=== PATIENT | female | born 1940 | race Caucasian/White ===

== ENCOUNTER 2017-11-24 13:37 | Day surgery (SDC) | payer OTHER ==
[~2017-11-24 13:37] MED LIST: ASPI81EC PO; CALCA500CH PO; CHOL10002 PO; CYAN1000 PO; IBUP800 PO; IRON325 MG; MOMENI; MULVITMINF PO; Multiple Vitam1 EAC1; POTASSIUM99 M1; Prinivil10 MG PO; RALO60 PO; TRAZ50 PO; TRIA50 PO
[2017-11-24 14:14] LABS: BASOPHILS ABSOLUTE AUTO 0.02 K/mm3 (0.00-0.23); BASOPHILS PERCENT AUTO 0 % (0-2); EOSINOPHILS ABSOLUTE AUTO 0.17 K/mm3 (0.00-0.68); EOSINOPHILS PERCENT AUTO 3 % (0-6); Hemoglobin 12.4 g/dL (11.5-16.0); IMMATURE GRAN ABSOLUTE AUTO 0.01 K/mm3 (0.00-0.10); IMMATURE GRAN PERCENT AUTO 0 % (0-1); LYMPHOCYTES ABSOLUTE AUTO 0.95 K/mm3 (0.84-5.20); LYMPHOCYTES PERCENT AUTO 15 % (21-46); MONOCYTES PERCENT AUTO 10 % (4-13); Mean Corpuscular HGB 29.7 pg (26.0-34.0); Mean Corpuscular HGB Conc 32.6 g/dL (31.5-36.5); Mean Corpuscular Volume 91 fL (80-100); NEUTROPHILS ABSOLUTE AUTO 4.54 K/mm3 (1.96-9.15); NEUTROPHILS PERCENT AUTO 72 % (41-73); Platelet Count 260 K/mm3 (150-400); RDW Coefficient Variation 14.7 % (11.7-14.2); RDW Standard Deviation 49.3 fL (35.1-46.3); Red Blood Cell Count 4.17 M/mm3 (3.80-5.20); White Blood Cell Count 6.29 K/mm3 (4.00-11.30)
[2017-11-24 14:48] LABS: Free Thyroxine 0.88 ng/dL (0.70-1.60); Very Low Density Lipoprot Chol 16 mg/dL (6-32)
[2017-11-24 15:43] LABS: CHOL/HDL RATIO 2.6; Cholesterol 167 mg/dL (50-200); HDL Cholesterol 64 mg/dL (>39); LDL/HDL RATIO 1.4; Low Density Lipoprotein Chol 87 mg/dL (0-110); Triglycerides 82 mg/dL (30-160)
[2017-11-24 15:47] LABS: Alanine Aminotransfer (ALT/SGP 18 U/L (12-78); Albumin, Blood 3.6 g/dL (3.4-5.0); Albumin/Globulin Ratio 0.9 (0.8-1.8); Alk Phos 66 U/L (50-136); Anion Gap 9 mmol/L (6-16); Aspartate Aminotrans (AST/SGOT 18 U/L (12-37); Bilirubin, Total 0.8 mg/dL (0.1-1.0); Blood Urea Nitrogen 16 mg/dL (8-24); Bun/Creatinine Ratio 27.7 (12.0-20.0); CO2, Blood 25 mmol/L (21-32); Calcium, Blood 8.7 mg/dL (8.5-10.1); Chloride, Blood 104 mmol/L (98-108); Creatinine, Blood 0.58 mg/dL (0.40-1.00); Globulin, Blood 3.9 g/dL (2.2-4.0); Glomerular Filtration Rate >60 (60-); Glucose, Blood 81 mg/dL (70-99); Potassium, Blood 3.9 mmol/L (3.5-5.5); Sodium, Blood 138 mmol/L (136-145); Total Protein, Blood 7.5 g/dL (6.4-8.2)
[2018-01-12] MEDS ORDERED: METO25ER PO ×2 (11:07→11:26)
[2018-07-15] MEDS ORDERED: VIT D3 PO (15:04)
[2018-07-15] MEDS ORDERED: VIT PO (15:05)
[2018-07-15] MEDS ORDERED: SLOW RELEASE IRON PO (15:06)
== END 2017-11-24 14:00 | disposition home or self-care (01) ==
LOC: ATC 13:37
PROVIDERS: Family Medicine; Internal Medicine Medical Oncology
DX: I48.92 Unspecified atrial flutter (principal); R05 Cough; R52 Pain, unspecified; I10 Essential (primary) hypertension
CPT/HCPCS: 36591; 80053; 80061; 83880; 84439; 84443; 85025; J1642

== ENCOUNTER 2017-11-28 10:35 | Observation (INO) | payer OTHER ==
[~2017-11-28] VITALS: Ht 160 cm; Wt 76.7 kg
[2017-11-28 12:08] LABS: BASOPHILS ABSOLUTE AUTO 0.04 K/mm3 (0.00-0.23); BASOPHILS PERCENT AUTO 0 % (0-2); EOSINOPHILS ABSOLUTE AUTO 0.07 K/mm3 (0.00-0.68); EOSINOPHILS PERCENT AUTO 1 % (0-6); Hematocrit 41.5 % (33.0-51.0); Hemoglobin 13.2 g/dL (11.5-16.0); IMMATURE GRAN ABSOLUTE AUTO 0.04 K/mm3 (0.00-0.10); IMMATURE GRAN PERCENT AUTO 0 % (0-1); LYMPHOCYTES PERCENT AUTO 6 % (21-46); MONOCYTES ABSOLUTE AUTO 0.84 K/mm3 (0.16-1.47); MONOCYTES PERCENT AUTO 8 % (4-13); Mean Corpuscular HGB 29.7 pg (26.0-34.0); Mean Corpuscular HGB Conc 31.8 g/dL (31.5-36.5); Mean Corpuscular Volume 94 fL (80-100); Mean Platelet Volume 9.8 fL (9.1-12.4); NEUTROPHILS ABSOLUTE AUTO 9.25 K/mm3 (1.96-9.15); NEUTROPHILS PERCENT AUTO 85 % (41-73); Platelet Count 259 K/mm3 (150-400); RDW Coefficient Variation 14.6 % (11.7-14.2); RDW Standard Deviation 50.5 fL (35.1-46.3); Red Blood Cell Count 4.44 M/mm3 (3.80-5.20); White Blood Cell Count 10.84 K/mm3 (4.00-11.30)
[2017-11-28 12:20] LABS: Calcium, Ionized (POC) 1.03 mmol/L (1.10-1.46); Chloride (POC) 103 mmol/L (98-108); Creatinine (POC) 0.6 mg/dL (0.6-1.0); Glucose (ISTAT POC) 102 mg/dL (70-99); Hemoglobin (POC) 14.6 g/dL (12.0-16.0); Potassium (POC) 3.5 mmol/L (3.5-5.5); Sodium (POC) 138 mmol/L (135-148); Total CO2 (POC) 24 mmol/L (21-32)
[2017-11-28 12:36] LABS: Alanine Aminotransfer (ALT/SGP 19 U/L (12-78); Albumin, Blood 3.7 g/dL (3.4-5.0); Albumin/Globulin Ratio 0.9 (0.8-1.8); Alk Phos 66 U/L (50-136); Anion Gap 9 mmol/L (6-16); Aspartate Aminotrans (AST/SGOT 21 U/L (12-37); Bilirubin, Total 0.5 mg/dL (0.1-1.0); Blood Urea Nitrogen 21 mg/dL (8-24); Bun/Creatinine Ratio 35.7 (12.0-20.0); CO2, Blood 24 mmol/L (21-32); Calcium, Blood 8.7 mg/dL (8.5-10.1); Chloride, Blood 104 mmol/L (98-108); Creatinine, Blood 0.59 mg/dL (0.40-1.00); Glomerular Filtration Rate >60 (60-); Glucose, Blood 100 mg/dL (70-99); Potassium, Blood 3.6 mmol/L (3.5-5.5); Sodium, Blood 137 mmol/L (136-145); Total Protein, Blood 7.7 g/dL (6.4-8.2); Troponin I <0.015 ng/mL (0.000-0.040)
[2017-11-28] MEDS ORDERED: Lasix20 MG PO (13:52)
[2017-11-28] MEDS ORDERED: DILT180 PO (13:53)
[2017-11-28] MEDS ORDERED: XARELTO20 MG PO (13:53)
[2017-11-28 16:39] LABS: Hematocrit 38.2 % (33.0-51.0); Hemoglobin 12.4 g/dL (11.5-16.0)
[2017-11-29 04:17] LABS: BASOPHILS ABSOLUTE AUTO 0.03 K/mm3 (0.00-0.23); BASOPHILS PERCENT AUTO 1 % (0-2); EOSINOPHILS ABSOLUTE AUTO 0.21 K/mm3 (0.00-0.68); EOSINOPHILS PERCENT AUTO 4 % (0-6); Hematocrit 36.5 % (33.0-51.0); Hemoglobin 11.8 g/dL (11.5-16.0); IMMATURE GRAN ABSOLUTE AUTO 0.02 K/mm3 (0.00-0.10); IMMATURE GRAN PERCENT AUTO 0 % (0-1); LYMPHOCYTES ABSOLUTE AUTO 0.87 K/mm3 (0.84-5.20); LYMPHOCYTES PERCENT AUTO 15 % (21-46); MONOCYTES ABSOLUTE AUTO 0.54 K/mm3 (0.16-1.47); MONOCYTES PERCENT AUTO 9 % (4-13); Mean Corpuscular HGB 29.9 pg (26.0-34.0); Mean Corpuscular HGB Conc 32.3 g/dL (31.5-36.5); Mean Corpuscular Volume 92 fL (80-100); Mean Platelet Volume 9.8 fL (9.1-12.4); NEUTROPHILS PERCENT AUTO 72 % (41-73); Platelet Count 249 K/mm3 (150-400); RDW Coefficient Variation 14.7 % (11.7-14.2); RDW Standard Deviation 50.2 fL (35.1-46.3); Red Blood Cell Count 3.95 M/mm3 (3.80-5.20); White Blood Cell Count 5.87 K/mm3 (4.00-11.30)
[2017-11-29 04:34] LABS: Anion Gap 8 mmol/L (6-16); Blood Urea Nitrogen 13 mg/dL (8-24); CO2, Blood 26 mmol/L (21-32); Chloride, Blood 107 mmol/L (98-108); Creatinine, Blood 0.59 mg/dL (0.40-1.00); Glomerular Filtration Rate >60 (60-); Glucose, Blood 86 mg/dL (70-99); Potassium, Blood 3.6 mmol/L (3.5-5.5); Sodium, Blood 141 mmol/L (136-145)
[2017-11-29] MEDS ORDERED: Cardizem CD 24240 MG PO (08:24)
[2017-11-29] MEDS ORDERED: CELE200 PO (08:25)
[2018-01-12] MEDS ORDERED: METO25ER PO ×2 (11:07→11:26)
[2018-07-15] MEDS ORDERED: VIT D3 PO (15:04)
[2018-07-15] MEDS ORDERED: VIT PO (15:05)
[2018-07-15] MEDS ORDERED: SLOW RELEASE IRON PO (15:06)
== END 2017-11-29 09:12 | disposition home or self-care (01) ==
LOC: ER 10:35 → PCU 10:36
PROVIDERS: Internal Medicine; Physician Assistant
DX: R42 Dizziness and giddiness (principal); R55 Syncope and collapse; K92.1 Melena; R19.7 Diarrhea, unspecified; I48.91 Unspecified atrial fibrillation; I48.92 Unspecified atrial flutter; I10 Essential (primary) hypertension; R10.9 Unspecified abdominal pain; R11.0 Nausea; I08.1 Rheumatic disorders of both mitral and tricuspid valves; Z85.048 Personal history of other malignant neoplasm of rectum, rectosigmoid junction, and anus; Z92.3 Personal history of irradiation; Z88.5 Allergy status to narcotic agent; Z88.6 Allergy status to analgesic agent; Z88.0 Allergy status to penicillin; Z91.040 Latex allergy status; Z79.899 Other long term (current) drug therapy; Z85.3 Personal history of malignant neoplasm of breast; Z92.21 Personal history of antineoplastic chemotherapy; Z79.01 Long term (current) use of anticoagulants
CPT/HCPCS: 71046; 80047; 80048; 80053; 84484; 85014; 85018; 85025; 93005; 93010; 93306; 96360; 99285; G0378; J7030

== ENCOUNTER 2018-01-09 09:52 | Day surgery (SDC) | payer OTHER ==
[~2018-01-09 09:52] MED LIST changes: +CELE200 PO; +Cardizem CD 24240 MG PO; +DILT180 PO; +Lasix20 MG PO; +XARELTO20 MG PO
[2018-01-09 10:53] LABS: International Normalized Ratio 1.43
[2018-01-09] MEDS ORDERED: IBUP800 PO (13:41)
[2018-01-09] MEDS ORDERED: B-125000 MCG SL (13:42)
[2018-01-09] MEDS ORDERED: LOPE2C PO (13:43)
[2018-01-09] MEDS ORDERED: Micro-K8 MEQ PO (13:45)
[2018-01-09] MEDS ORDERED: DILTIAZEM 24HR180 M1 PO (13:46)
[2018-01-09] MEDS ORDERED: Hair, Skin & N1 EACH PO (13:46)
[2018-01-09] MEDS ORDERED: METO25ER PO (13:47)
[2018-01-09] MEDS ORDERED: NAPR220 PO (13:47)
[2018-01-09 16:08] LABS: BASOPHILS ABSOLUTE AUTO 0.04 K/mm3 (0.00-0.23); BASOPHILS PERCENT AUTO 1 % (0-2); EOSINOPHILS ABSOLUTE AUTO 0.22 K/mm3 (0.00-0.68); EOSINOPHILS PERCENT AUTO 4 % (0-6); Hematocrit 38.3 % (33.0-51.0); Hemoglobin 12.5 g/dL (11.5-16.0); IMMATURE GRAN ABSOLUTE AUTO 0.03 K/mm3 (0.00-0.10); IMMATURE GRAN PERCENT AUTO 1 % (0-1); LYMPHOCYTES ABSOLUTE AUTO 0.89 K/mm3 (0.84-5.20); LYMPHOCYTES PERCENT AUTO 15 % (21-46); MONOCYTES ABSOLUTE AUTO 0.66 K/mm3 (0.16-1.47); MONOCYTES PERCENT AUTO 11 % (4-13); Mean Corpuscular HGB Conc 32.6 g/dL (31.5-36.5); Mean Corpuscular Volume 92 fL (80-100); Mean Platelet Volume 10.3 fL (9.1-12.4); NEUTROPHILS ABSOLUTE AUTO 4.07 K/mm3 (1.96-9.15); NEUTROPHILS PERCENT AUTO 69 % (41-73); Platelet Count 289 K/mm3 (150-400); RDW Coefficient Variation 14.5 % (11.7-14.2); RDW Standard Deviation 49.2 fL (35.1-46.3); Red Blood Cell Count 4.16 M/mm3 (3.80-5.20); White Blood Cell Count 5.91 K/mm3 (4.00-11.30)
[2018-01-09 16:30] LABS: Alanine Aminotransfer (ALT/SGP 21 U/L (12-78); Albumin, Blood 3.7 g/dL (3.4-5.0); Alk Phos 69 U/L (50-136); Anion Gap 6 mmol/L (6-16); Aspartate Aminotrans (AST/SGOT 20 U/L (12-37); Bilirubin, Total 0.2 mg/dL (0.1-1.0); Blood Urea Nitrogen 19 mg/dL (8-24); Bun/Creatinine Ratio 26.6 (12.0-20.0); CO2, Blood 28 mmol/L (21-32); Calcium, Blood 8.3 mg/dL (8.5-10.1); Chloride, Blood 106 mmol/L (98-108); Creatinine, Blood 0.71 mg/dL (0.40-1.00); Globulin, Blood 3.7 g/dL (2.2-4.0); Glomerular Filtration Rate >60 (60-); Glucose, Blood 105 mg/dL (70-99); Potassium, Blood 3.9 mmol/L (3.5-5.5); Sodium, Blood 140 mmol/L (136-145); Total Protein, Blood 7.4 g/dL (6.4-8.2)
== END 2018-01-09 15:50 | disposition home or self-care (01) ==
LOC: ATC 09:52
PROVIDERS: Internal Medicine Clinical Cardiac Electrophysiology
DX: I48.91 Unspecified atrial fibrillation (principal); I48.92 Unspecified atrial flutter; I10 Essential (primary) hypertension
CPT/HCPCS: 36591; 80053; 85025; 85610; J1642

== ENCOUNTER 2018-01-12 09:53 | Day surgery (SDC) | payer OTHER ==
[~2018-01-12] VITALS: Ht 162.6 cm; Wt 75.0 kg
[~2018-01-12 09:53] MED LIST changes: +B-125000 MCG SL; +DILTIAZEM 24HR180 M1 PO; +Hair, Skin & N1 EACH PO; +LOPE2C PO; +METO25ER PO; +Micro-K8 MEQ PO; +NAPR220 PO
[2018-01-12] MEDS ORDERED: METO25ER PO (11:07)
[2018-01-12] MEDS ORDERED: METO50ER PO (11:26)
== END 2018-01-12 23:09 | disposition home or self-care (01) ==
LOC: MHTC 09:53
PROC: 5A2204Z Restoration of Cardiac Rhythm, Single (ICD-10-PCS; principal; 2018-01-12)
DX: I48.1 Persistent atrial fibrillation (principal); I48.92 Unspecified atrial flutter; I10 Essential (primary) hypertension
CPT/HCPCS: 92960; 93005; 93010; 99152; J1642; J2250; J7120

== ENCOUNTER → 2018-02-22 | Outpatient (CLI) | payer OTHER ==
[~2018-02-22] MED LIST changes: +METO50ER PO
[2018-02-22 09:47] LABS: Adenovirus F 40/41 Not Detected (NOT DETECT); Astrovirus Not Detected (NOT DETECT); Campylobacter Sp Not Detected (NOT DETECT); Cryptosporidium Not Detected (NOT DETECT); Cyclospora Cayetanensis Not Detected (NOT DETECT); E. Coli O157 Not Detected (NOT DETECT); Entamoeba Histolytica Not Detected (NOT DETECT); Enteroaggregative E. coli-EAEC Not Detected (NOT DETECT); Enteropathogenic E. coli-EPEC Not Detected (NOT DETECT); Enterotoxigenic E. coli-ETEC Not Detected (NOT DETECT); Giardia Lamblia Not Detected (NOT DETECT); Norovirus GI/GII Not Detected (NOT DETECT); Plesiomonas Shigelloides Not Detected (NOT DETECT); Rotavirus A Not Detected (NOT DETECT); Salmonella Sp Not Detected (NOT DETECT); Sapovirus Not Detected (NOT DETECT); Shiga Toxin-prod E. coli-STEC Not Detected (NOT DETECT); Shigella/Enteroin E. coli-EIEC Not Detected (NOT DETECT); Vibrio Cholerae Not Detected (NOT DETECT); Vibrio Sp Not Detected (NOT DETECT); Yersinia Enterocolitica Not Detected (NOT DETECT)
== END | disposition home or self-care (01) ==
LOC: LAB 09:39 → LAB FUT 02-20 11:45 → EDSTATUS 02-20 11:45
PROVIDERS: Internal Medicine Gastroenterology
DX: R19.7 Diarrhea, unspecified (principal)
CPT/HCPCS: 87507

== ENCOUNTER 2018-11-10 00:06 | Day surgery (SDC) | payer OTHER ==
[~2018-11-10 00:06] MED LIST changes: -METO50ER PO; +SLOW RELEASE IRON PO; +VIT D3 PO; +VIT PO
[2018-11-10 14:33] LABS: Hematocrit 37.1 % (33.0-51.0); Hemoglobin 11.9 g/dL (11.5-16.0)
[2018-11-10 14:59] LABS: Anion Gap 7 mmol/L (6-16); Blood Urea Nitrogen 14 mg/dL (8-24); CO2, Blood 28 mmol/L (21-32); Calcium, Blood 8.4 mg/dL (8.5-10.1); Chloride, Blood 106 mmol/L (98-108); Creatinine, Blood 0.56 mg/dL (0.40-1.00); Glomerular Filtration Rate >60 (60-); Glucose, Blood 75 mg/dL (70-99); Potassium, Blood 3.6 mmol/L (3.5-5.5); Sodium, Blood 141 mmol/L (136-145)
[2018-11-10] MEDS ORDERED: ASCO500 PO (15:51)
--- NOTE | 2018-11-10 15:58 | NUR ---
PT VERBALIZES UNDERSTANDING/IMPORTANCE OF HAVING HER MEDIPORT FLUSHED EVERY MONTH. BEFORE TODAYS APPT, PT REPORTS PORT LAST FLUSHED "AROUND 10 MONTHS AGO".
== END 2018-11-10 14:30 | disposition home or self-care (01) ==
LOC: ATC 00:06
PROVIDERS: Nurse Practitioner Adult Health
DX: I48.92 Unspecified atrial flutter (principal); I48.91 Unspecified atrial fibrillation; I10 Essential (primary) hypertension; Z45.2 Encounter for adjustment and management of vascular access device
CPT/HCPCS: 36591; 80048; 85014; 85018; J1642

== ENCOUNTER 2019-04-01 16:33 | Emergency (ER) | payer OTHER ==
[~2019-04-01] VITALS: Ht 160 cm; Wt 77.1 kg
[~2019-04-01 16:33] MED LIST changes: +ASCO500 PO; +FURO20 PO; -Lasix20 MG PO; -Micro-K8 MEQ PO; +POTA10T PO; -VIT D3 PO; +VITAMIN D31000 UNI2 PO
[2019-04-01 17:02] LABS: BASOPHILS ABSOLUTE AUTO 0.05 K/mm3 (0.00-0.23); BASOPHILS PERCENT AUTO 1 % (0-2); EOSINOPHILS ABSOLUTE AUTO 0.19 K/mm3 (0.00-0.68); EOSINOPHILS PERCENT AUTO 3 % (0-6); Hematocrit 36.6 % (33.0-51.0); Hemoglobin 11.4 g/dL (11.5-16.0); IMMATURE GRAN ABSOLUTE AUTO 0.04 K/mm3 (0.00-0.10); IMMATURE GRAN PERCENT AUTO 1 % (0-1); LYMPHOCYTES ABSOLUTE AUTO 1.66 K/mm3 (0.84-5.20); LYMPHOCYTES PERCENT AUTO 23 % (21-46); MONOCYTES ABSOLUTE AUTO 0.91 K/mm3 (0.16-1.47); MONOCYTES PERCENT AUTO 12 % (4-13); Mean Corpuscular HGB Conc 31.1 g/dL (31.5-36.5); Mean Corpuscular Volume 93 fL (80-100); Mean Platelet Volume 10.2 fL (9.1-12.4); NEUTROPHILS PERCENT AUTO 61 % (41-73); Platelet Count 307 K/mm3 (150-400); RDW Coefficient Variation 13.8 % (11.7-14.2); RDW Standard Deviation 47.3 fL (35.1-46.3); Red Blood Cell Count 3.93 M/mm3 (3.80-5.20); White Blood Cell Count 7.35 K/mm3 (4.00-11.30)
[2019-04-01 17:20] LABS: Alanine Aminotransfer (ALT/SGP 21 U/L (12-78); Albumin, Blood 3.7 g/dL (3.4-5.0); Albumin/Globulin Ratio 0.9 (0.8-1.8); Alk Phos 78 U/L (50-136); Anion Gap 11 mmol/L (6-16); Aspartate Aminotrans (AST/SGOT 23 U/L (12-37); Bilirubin, Total 0.2 mg/dL (0.1-1.0); Blood Urea Nitrogen 17 mg/dL (8-24); Bun/Creatinine Ratio 21.8 (12.0-20.0); CO2, Blood 23 mmol/L (21-32); Calcium, Blood 8.4 mg/dL (8.5-10.1); Chloride, Blood 107 mmol/L (98-108); Creatinine, Blood 0.78 mg/dL (0.40-1.00); Globulin, Blood 3.9 g/dL (2.2-4.0); Glomerular Filtration Rate >60 (60-); Glucose, Blood 109 mg/dL (70-99); Magnesium, Blood 2.1 mg/dL (1.6-2.4); Sodium, Blood 141 mmol/L (136-145); Total Protein, Blood 7.6 g/dL (6.4-8.2); Troponin I <0.015 ng/mL (0.000-0.040)
[2019-04-01] MEDS ORDERED: ELIQUIS5 MG PO (17:23)
[2019-04-01] MEDS ORDERED: Prilosec Otc20 MG PO (17:25)
[2019-04-01] MEDS ORDERED: MELATONIN5 M1 PO (17:25)
[2019-04-01] MEDS ORDERED: TRAM50 PO (17:26)
[2019-04-01] MEDS ORDERED: POTCHL20ER PO (18:02)
== END 2019-04-01 18:21 | disposition home or self-care (01) ==
LOC: ER 16:33
PROVIDERS: Emergency Medicine
DX: I48.91 Unspecified atrial fibrillation (principal); I48.92 Unspecified atrial flutter; E87.6 Hypokalemia; I10 Essential (primary) hypertension
CPT/HCPCS: 71045; 80053; 83735; 84484; 85025; 92960; 93005; 93010; 99285-25; J0153; J1642; J2704; J7030

== ENCOUNTER 2019-04-07 08:03 | Day surgery (SDC) | payer OTHER ==
[~2019-04-07 08:03] MED LIST changes: +ELIQUIS5 MG PO; +MELATONIN5 M1 PO; +POTCHL20ER PO; +Prilosec Otc20 MG PO; +TRAM50 PO
[2019-04-07 18:38] LABS: Anion Gap 5 mmol/L (6-16); Blood Urea Nitrogen 17 mg/dL (8-24); Bun/Creatinine Ratio 23.9 (12.0-20.0); CO2, Blood 28 mmol/L (21-32); Calcium, Blood 8.4 mg/dL (8.5-10.1); Chloride, Blood 107 mmol/L (98-108); Creatinine, Blood 0.71 mg/dL (0.40-1.00); Glomerular Filtration Rate >60 (60-); Glucose, Blood 68 mg/dL (70-99); Potassium, Blood 3.7 mmol/L (3.5-5.5); Sodium, Blood 140 mmol/L (136-145)
== END 2019-04-07 16:15 | disposition home or self-care (01) ==
LOC: ATC 08:03
PROVIDERS: Family Medicine
DX: R19.7 Diarrhea, unspecified (principal); I10 Essential (primary) hypertension; K21.9 Gastro-esophageal reflux disease without esophagitis; K58.9 Irritable bowel syndrome, unspecified; Z85.3 Personal history of malignant neoplasm of breast; Z85.038 Personal history of other malignant neoplasm of large intestine
CPT/HCPCS: 36591; 80048; J1642

== ENCOUNTER 2019-07-07 02:26 | Inpatient (IN) | payer OTHER ==
[~2019-07-07] VITALS: Ht 162.6 cm; Wt 157.0 kg
[2019-07-07 03:05] LABS: BASOPHILS ABSOLUTE AUTO 0.03 K/mm3 (0.00-0.23); BASOPHILS PERCENT AUTO 1 % (0-2); EOSINOPHILS ABSOLUTE AUTO 0.23 K/mm3 (0.00-0.68); EOSINOPHILS PERCENT AUTO 4 % (0-6); Hematocrit 37.9 % (33.0-51.0); IMMATURE GRAN ABSOLUTE AUTO 0.01 K/mm3 (0.00-0.10); IMMATURE GRAN PERCENT AUTO 0 % (0-1); LYMPHOCYTES ABSOLUTE AUTO 1.12 K/mm3 (0.84-5.20); LYMPHOCYTES PERCENT AUTO 20 % (21-46); MONOCYTES PERCENT AUTO 11 % (4-13); Mean Corpuscular HGB 28.2 pg (26.0-34.0); Mean Corpuscular HGB Conc 31.7 g/dL (31.5-36.5); Mean Corpuscular Volume 89 fL (80-100); Mean Platelet Volume 10.6 fL (9.1-12.4); NEUTROPHILS ABSOLUTE AUTO 3.62 K/mm3 (1.96-9.15); NEUTROPHILS PERCENT AUTO 65 % (41-73); Platelet Count 258 K/mm3 (150-400); RDW Coefficient Variation 14.7 % (11.7-14.2); RDW Standard Deviation 47.3 fL (35.1-46.3); Red Blood Cell Count 4.26 M/mm3 (3.80-5.20); White Blood Cell Count 5.61 K/mm3 (4.00-11.30)
[2019-07-07 03:26] LABS: Alanine Aminotransfer (ALT/SGP 18 U/L (12-78); Albumin, Blood 3.6 g/dL (3.4-5.0); Albumin/Globulin Ratio 0.9 (0.8-1.8); Alk Phos 62 U/L (50-136); Anion Gap 8 mmol/L (6-16); Aspartate Aminotrans (AST/SGOT 17 U/L (12-37); Bilirubin, Total 0.4 mg/dL (0.1-1.0); Blood Urea Nitrogen 14 mg/dL (8-24); Bun/Creatinine Ratio 22.7 (12.0-20.0); CO2, Blood 27 mmol/L (21-32); Calcium, Blood 8.7 mg/dL (8.5-10.1); Chloride, Blood 106 mmol/L (98-108); Creatinine, Blood 0.62 mg/dL (0.40-1.00); Glomerular Filtration Rate >60 (60-); Glucose, Blood 87 mg/dL (70-99); Potassium, Blood 3.2 mmol/L (3.5-5.5); Sodium, Blood 141 mmol/L (136-145); Total Protein, Blood 7.6 g/dL (6.4-8.2); Troponin I <0.015 ng/mL (0.000-0.040)
[2019-07-07] MEDS ORDERED: Flonase 0.05% N16 GM (12:24)
--- NOTE | 2019-07-07 17:19 | NUR ---
ADMIT NOTE/SHIFT SUMMARY REICEVED REPORT FROM JOSEPH KWOK RN IN ED, PT TO ROOM AT 1213. SBA TRANSFER TO BED. PT ORIENTED TO ROOM AND CALL LIGHT. PT EDCUATED ON FALL RISK AND TO USE CALL LIGHT FOR ASSISTANCE BEFORE GETTING UP. PT STATES SHE WANTED TO GO HOME THIS AM, BUT SHE STARTED FEELING DIZZY WHEN SHE SAT/STOOD UP AND HR WAS "RAPID". PT A&Ox4. CALM AND COOPERATIVE WITH CARE. PT RESTING IN BED, SBA TO BSC. PT DENIES PAIN, SOB AND NAUSEA. REFUSING MEALS, STATES SHE HAS PROTITIS AND DOES NOT WANT TO HAVE DIARRHEA. ON ADMISSION AT REST PT 80-90S AFIB, WHEN SITTING UP AND STANDING PT HR AVE 180'S PER TALENT ENGINEER. PT SUSTANING 180'S AT 1310, NOTIFIED DR BENAVIDES NEW ORDERS ENTERED, GIVE LOPRESSOR NOW AND PLACE ON BEDREST, MONITOR FOR 30-45 MINS IF LOPRESSOR NOT EFFECTIVE OR HR STARTS TRENDING UP GIVE THE ONE TIME IV CARDIZEM 10MG ONCE. AT 1430 PT CONVERTED TO SR 80-90'S, AT 1530 PT UP TO BSC MAINTAINING 80-90 NSR, NOTIFED DR BENAVIDES, NEW ORDERS FOR TRANSFER TO MED UNIT WITH TELE. VSS. NO OTHER ACUTE CHANGES NOTED DURING SHIFT. WILL CONTINUE TO MONITOR UNITL REPORT GIVEN TO ONCOMING RN.
--- NOTE | 2019-07-07 21:51 | NUR ---
NOTE PT GOT UP TO BATHROOM APPROX. 1920. PT HEART RATE INCREASED WITH THIS UP TO 180'S. UPON RETURNING TO BED PT HEART RATE WENT DOWN TO AVERAGING 120'S. PT HEART RATE THEN BEGAN TO SLOWLY INCREASE. NOTIFIED PHYSICIAN. ORDERS TO RESTART CARDIZEM DRIP STARTING AT 15ML/HR. HEART RATE AVERAGING 180'S AT THIS TIME. AFTER SOME TIME HEART RATE BEGAN TRENDING DOWN. TITRATED DOWN NEEDED. PT CURRENTLY ON 5ML/HR. WILL CONTINUE TO MONITOR HEART RATE AND TIRTRATE NEEDED.
[2019-07-08 06:00] LABS: Anion Gap 6 mmol/L (6-16); Blood Urea Nitrogen 10 mg/dL (8-24); Bun/Creatinine Ratio 18.3 (12.0-20.0); CO2, Blood 25 mmol/L (21-32); Calcium, Blood 8.8 mg/dL (8.5-10.1); Chloride, Blood 108 mmol/L (98-108); Creatinine, Blood 0.55 mg/dL (0.40-1.00); Glomerular Filtration Rate >60 (60-); Glucose, Blood 90 mg/dL (70-99); Potassium, Blood 3.8 mmol/L (3.5-5.5); Sodium, Blood 139 mmol/L (136-145)
--- NOTE | 2019-07-08 08:15 | NUR ---
ASSUMED CARE PT ALERT AND ORIENTED. VS STABLE. HR NSR AT THIS TIME, BUT UPON WALKING TO BATHROOM PT CONVERTED TO AFIB UP TO THE 180'S. PT CONVERTS BACK TO NSR AFTER A COUPLE MINUTES. DISCUSSED THIS WITH DR. BENAVIDES AND ORDERS TO GIVE NEW DOSE OF METOPROLOL. PT EDUCATED ON PLAN OF CARE. PT ASYMPTOMATIC WITH ELEVATED RATE. WILL CONTINUE TO MONITOR CLOSELY.
--- NOTE | 2019-07-08 15:12 | NUR ---
REPORT GIVEN TO ABDOUL ARCHER.
--- NOTE | 2019-07-08 16:26 | NUR ---
ASSUMED CARE: RECIEVED REPORT FROM SUZI SCHREIBER. PT RESTING QUIETLY IN BED AT THIS TIME. 120S ON TELE AT THIS TIME. NO ACUTE NEEDS OR CONCERNS AT THIS TIME.
--- NOTE | 2019-07-08 17:19 | NUR ---
RN ENTERED ROOM AND PT STATED SHE WAS HAVING JAW PAIN AND COLD SWEATS. TELE STATES PT WAS IN 190S, AFIB. EKG BEING PREFORMED AND FORESTRY WORKER ON PHONE WITH DR BENAVIDES. SEE NEW ORDERS. PT NOW STATES JAW PAIN IS SUBSIDING. WILL MEDICATE
--- NOTE | 2019-07-08 18:02 | NUR ---
DR MORENO AT BEDSIDE, PERFORMED CAROTID MASSAGE RN CALLED EQUITIES TRADER. TELE STATES HR DROPPED TO 90S. DR STATED TO RESTART CARDIZEM GTT AND ADMINISTER DOSE OF CARDIZEM PUSH AND METOPROLOL. PLAN IS FOR RATE STABILIZATION AND ABLATION OUTPT. LOAN SECRETARY AWARE
--- NOTE | 2019-07-08 18:48 | NUR ---
SHIFT SUMMARY: PT IN AFLUTTER PER DR MORENO. HR 90S AT THIS TIME. CARDIZEM GTT RUNNING AT 5MG/HR AT THIS TIME. PT RESTING QUIETLY IN BED, NO FURTHER NEEDS. IT HAS BEEN NOTED THAT PT'S HR INCREASES TO 180S-190S WITH ACTIVITY. PLAN IS TO STABILIZE THIS THEN DISCHARGE FOR ABLASION AN OUTPT.
--- NOTE | 2019-07-08 21:50 | NUR ---
PCU NIGHTSHIFT ASSUMED CARE OF PT APPROX. 1900. PT A&OX4. VITAL SIGNS STABLE. ASSESSMENT COMPLETED. PT HEART RATE AVERGAING 90'S AT THIS TIME. UPON GETTING UP TO BEDSIDE COMMODE PT HEART RATE INCREASED TO 120'S. UPON RETURNING TO BED HEART RATE DECREASED BACK TO 90'S. PT REPORTS FEELING BETTER THIS EVENING. PT DENIED ANY DIZZYNESS OR LIGHTHEADEDNESS WITH GETTING UP. CARDIZEM DRIP REMAINS ON AT THIS TIME. BED IN LOW POSITION, CALL LIGHT IN REACH AND PT DENIES ANY NEEDS. WILL CONTINUE TO MONITOR.
--- NOTE | 2019-07-09 05:09 | NUR ---
SHIFT SUMMARY PT PLEASANT, COOPERATIVE AND USES CALL LIGHT APROPRIATELY. PT REMAINS A&OX4. VITAL SIGNS STABLE AND ASSESSMENT FINDINGS REMAIN UNCHANGED. PT UP TO BEDISDE COMMODE A COUPLE OF TIME T/O SHIFT. PT HEART RATE INCREASED WITH THIS UP TO 120'S BUT UPON RETURNING TO BED WENT BACK DOWN TO 90'S. PT REMAINED OFF CARDIZEM DRIP SINCE START OF SHIFT NOTED IN PREVIOUS NOTE. PT ABLE TO SLEEP MOST OF SHIFT. BED IN LOW POSITION, CALL LIGHT IN REACH AND PT DENIES ANY NEEDS. WILL CONTINUE TO MONITOR UNTIL HANDOFF TO DAYSHIFT RN.
--- NOTE | 2019-07-09 18:00 | NUR ---
SHIFT SUMMARY PT ALERT AND ORIENTED. BP STABLE. HR AFLUTTER RATE HAS BEEN 90'S UNTIL APPROXIMATELY 1600. PT AMBULATED TO BATHROOM AND HR INCREASED TO 190. HEART RATE SUSTAINED 190 FOR 2 MINUTES THEN CAME DOWN TO 150'S. DR. MORENO AND DR. BENAVIDES NOTIFIED. ORDERS TO GIVE ORAL METOPROLOL AND START PO AMIO. HR STILL SUSTAINING 150'S AND PT STATES SHE IS DIZZY. DR. MORENO CALLED AGAIN AND CARDIZEM GTT STARTED. PT LAYING IN BED. HR 150-160. BP STABLE. CARDIZEM GTT AT 10ML/HR. WILL CONTINUE TO MONITOR CLOSELY AND REPORT TO ONCOMING RN.
[2019-07-09 18:55] LABS: Albumin, Blood 3.3 g/dL (3.4-5.0); Albumin/Globulin Ratio 0.9 (0.8-1.8); Bilirubin, Direct 0.1 mg/dL (0.0-0.3); Bilirubin, Indirect 0.4 mg/dL (0.1-0.7); Bilirubin, Total 0.5 mg/dL (0.1-1.0); Globulin, Blood 3.6 g/dL (2.2-4.0); Thyroid Stimulating Hormone 4.23 uIU/mL (0.360-4.800); Total Protein, Blood 6.9 g/dL (6.4-8.2)
--- NOTE | 2019-07-09 22:12 | NUR ---
ASSUMED CARE APPROXIMATELY 1900; PT ALERT; SPOUSE AT BEDSIDE; PT STATES SHE WANTS TO DISCUSS W/ DOCTOR OPTIONS TO BE TRANSPORTED FRO OBLATION; PT IN AFLUTTER W/ CARDIZEM GTT; HR IN MID 70'S PER FINANCIAL REPORTING MANAGER; AMIODORONE STARTED PER EMAR; PT STATES SHE DOES NOT FEEL LIKE EATING; DID NOT EAT DINNER; CALL LIGHT IN REACH; BED IN LOWEST POSITION; WILL CONTINUE TO MONITOR
--- NOTE | 2019-07-10 09:22 | NUR ---
PCU DAYSHIFT. ASSUMED CARE OF PT APPROX. 0700. PT A&OX4. VITAL SIGNS STABLE. ASSESSMENT COMPLETED. PT HEART RATE AVERAGING 70'S-80'S AT THIS TIME, WHILE PT IS RESTING. CARDIZEM HAS REMAINS OFF SINCE APPROX. 0020 ON 07/10/19. PHYSICIAN IN TO SEE PT THIS MORNING, AND STATES THAT HE WILL ATTEMPT TO CONTACT A CARDIOLGIST AT [facility] TO SEE ABOUT TRANSFERING INPATIENT. IF NOT HE STATES HE WILL DISCHARGE PT TO COMPLETE NEEDED PROCEDURE OUTPATIENT. BED IN LOW POSITION, CALL LIGHT IN REACH AND PT DENIES ANY NEEDS. WILL CONTINUE TO MONITOR.
--- NOTE | 2019-07-10 17:00 | NUR ---
WALKED WALKED WITH PT TO THE DOOR WAY IN THE ROOM. HEART RATE REACHED 96 WITH THIS AND THEN WENT BACK DOWN TO ABOUT 82 AFTER RETURNING BACK TO BED. WILL CONTINUE TO MONITOR.
--- NOTE | 2019-07-10 17:44 | NUR ---
SHIFT SUMMARY PT PLEASANT, COOPERATIVE AND USES CALL LIGHT APPROPRIATELY. PT REMAINS A&OX4. VITAL SIGNS REMAIN STABLE. HEART RATE REMAINS 80'S-90'S. UPON GETTING UP AND WALKING IN ROOM PT HEART RATE GOT UP TO 96. PT REPROTS FEELING WELL. ASSESSMENT FINDINGS REMAIN UNCHANGED. ANSWERED QUESTIONS ABOUT CHANGE OF PLAN OF APPROACH NEEDED. BED IN LOW POSITION, CALL LIGHT IN REACH AND PT DENIES ANY NEEDS. WILL CONTINUE TO MONITOR UNTIL HANDOFF TO NIGHTSHIFT RN.
--- NOTE | 2019-07-10 19:36 | NUR ---
AMIODORONE OFF APPROX. 1850 PT BECAME BRADYCARDIC, WITH A LOW OF 33. AMIODORONE WAS STOPPED AT THIS POINT. AND CALLED AND SPOKE TO PHYSICIAN. PHYSICIAN REPORTED TO LEAVE THIS OFF AT THIS TIME. AND HE WOULD RE EVALUATE THE SITUATION. PT REPORTS FEELING VERY LIGHTHEADED WITH THIS. WILL CONTINUE TO MONITOR.
--- NOTE | 2019-07-10 19:38 | NUR ---
NOTE AMIODORONE OFF APPROX. 1854.
--- NOTE | 2019-07-10 21:14 | NUR ---
CALL TO DR NELSNO: DR NELSON NOTIFIED THAT PATIENT'S HEART RATE IS SINUS RYTHM TRENDING IN THE 50'S TO VERY LOW 60'S. DR NELSON ORDERED TO HAVE THE 2100 DOSE OF METOPROLOL HELD FOR TONIGHT. HE STATED THAT HE AND THE HOSPITALIST WOULD DECIDE WHAT TO DO ABOUT THE 0900 DOSE OF METOPROLOL IN THE MORNING. DR AWARE THAT AMIODARONE GTT IS OFF. WILL CONTINUE TO MONITOR PATIENT.
--- NOTE | 2019-07-11 04:30 | NUR ---
ASSUMED CARE APPROXIMATELY 1900; PT ALERT AND CONVERSING W/ STAFF; PT STATES SHE IS FRUSTRATED W/ DAYS EVENTS AND WISHES FOR OBLATION OR INTERVENTION FOR CONDITION; AMIODORONE GTT OFF; 2100 METROPROLOL HELD PER ORDERS; PT IN SINUS RHYTHM W/ HR HIGH 50'S TO LOW 60'S; PT UP TO BATHROOM AT MIDNIGHT W/ NO INCIDENT; PT DENIES PAIN; DENIES NEEDS; CALL LIGHT IN REACH; BED IN LOWEST POSITION; WILL CONTINUE TO MONITOR UNTIL HAND OFF TO DAY SHIFT RN.
[2019-07-11] MEDS ORDERED: ACET325 PO (12:38)
--- NOTE | 2019-07-11 12:40 | NUR ---
[facility] CONSULT VISIT: Pt is a 79 year old who looks younger than her age. she has a PMH of breast cancer and colon cancer (both treated with chemo/radiation), GERD, a-fib, HTN, chronic back pain. During this admission she has had a-fib with RVR. Echo done shows severe L atrial enlargement, EF of 60%. Cardiology and hospitalist working on rate/rhythm control with medications. Upon entering [place]'s room, she looks distressed and asks that her heart rate be checked due to feeling sweaty and "funny". HR checked with RN and site monitor and pt's rate and rhythm normal, in the 60's. Pt relieved. She had eaten 50% of a 1/2 portion meal for lunch and was done. She reports sitting up at EOB for 30 min in prep for increasing activity to go home, anticipated later today. Introduced myself to pt and explained my purpose with advanced care planning conversation and assist with completing an AD/POLST if she would like. Pt denies pain and does not appear uncomfortable once reassured that her heart was ok. Pt has had previous cardioversions and expresses anxiety re: cont. rate/rhythm issues. She describes activity intolerance and verbalizes understanding of "needing to take it easy" at home, gradually increassing activity again. She reports her has completed an AD at the [facility] and she has started to complete one a number of times. She states her would be her first surrogate decision maker and then one of her children. She has two [place] the [place] and a son, who lives further away. She states her is 5.5 years younger and although they have discussed wishes and started AD forms, they have not completed an AD for her or POLST forms for either one of them. Pt confirms she wishes to be a full code at this time, but "not if I am going to be a vegetable". She does not believe she would want to be intubated. I gave her a booklet, "Hard Choices for [place] People", for her and her to read before completing their POLST and AD forms. Pt appreciated having blank forms for both her and her to complete. We discussed who needed copies once done. Pt's PCP is Dr Nguyễn at [facility]. She will review and discuss with him also at her next OV. She states her daughters will be visiting in July and that will be a good time to discuss and have them sign acceptance of alternate surrogate decision makers. Pt also given info on getting a copy 's AD from [place] in his [employer] EMR. Pt hopeful for d/c home today and stated she'd been waiting since for d/c but her heart hadn't cooperated. Pt given my card to contact [facility] if she and her would like any help completing their Advanced directives. Pt very pleasant and appreciative of the visit.
[2019-07-11] MEDS ORDERED: Amiodarone HCl200 MG PO (12:41)
[2019-07-11] MEDS ORDERED: ELIQUIS5 MG PO (12:43)
--- NOTE | 2019-07-11 15:00 | NUR ---
DISCHARGE NOTE PLAN FOR DISCHARGE THIS MORNING IF HR REMAINS STABLE. HR HAS BEEN NSR 50-60. PT ABLE TO AMBULATE TO BATHROOMAND AROUND ROOM. DR. BENAVIDES IN THIS AFTERNOON WITH OK FOR DISCHARGE. DISCHARGE INSTRUCTIONS PROVIDED. NEW MEDICATIONS EDUCATED TO PT. ALL QUESTIONS ANSWERED. PT TAKEN OUT BY WHEELCHAIR.
== END 2019-07-11 15:00 | disposition home or self-care (01) | DRG 310 ==
LOC: ER 02:26 → PCU 02:27 → ERHOLD 02:27 → PCU 12:18
PROVIDERS: Emergency Medicine; Internal Medicine; Internal Medicine Cardiovascular Disease; ADMIT Hospitalist
DX: I48.91 Unspecified atrial fibrillation (principal); I10 Essential (primary) hypertension; K21.9 Gastro-esophageal reflux disease without esophagitis; E87.6 Hypokalemia; K62.7 Radiation proctitis; G89.29 Other chronic pain; M54.9 Dorsalgia, unspecified; K58.9 Irritable bowel syndrome, unspecified; Z85.3 Personal history of malignant neoplasm of breast; Z88.5 Allergy status to narcotic agent; Z88.0 Allergy status to penicillin; Z88.8 Allergy status to other drugs, medicaments and biological substances; Z88.6 Allergy status to analgesic agent; Z91.040 Latex allergy status; Z85.038 Personal history of other malignant neoplasm of large intestine; Z92.21 Personal history of antineoplastic chemotherapy; Z92.3 Personal history of irradiation
CPT/HCPCS: 36415; 80048; 80053; 80076; 83735; 84443; 84484; 85025; 93005; 93010; 96361; 96365; 96366; 96376; 99285-25; A9270; G0378; J0282; J1642; J3480; J7030; J7050; J7060

== ENCOUNTER 2019-09-27 11:15 | Observation (INO) | payer OTHER ==
[~2019-09-27] VITALS: Ht 162.6 cm; Wt 72.2 kg
[~2019-09-27 11:15] MED LIST changes: +ACET325 PO; +Amiodarone HCl200 MG PO; +Flonase 0.05% N16 GM
[2019-09-27 12:00] LABS: BASOPHILS ABSOLUTE AUTO 0.01 K/mm3 (0.00-0.23); BASOPHILS PERCENT AUTO 0 % (0-2); Calcium, Ionized (POC) 1.05 mmol/L (1.10-1.46); Chloride (POC) 101 mmol/L (98-108); Creatinine (POC) 0.5 mg/dL (0.6-1.0); EOSINOPHILS ABSOLUTE AUTO 0.08 K/mm3 (0.00-0.68); EOSINOPHILS PERCENT AUTO 1 % (0-6); Glucose (ISTAT POC) 76 mg/dL (70-99); Hematocrit 28.9 % (33.0-51.0); Hemoglobin (POC) 9.5 g/dL (12.0-16.0); IMMATURE GRAN ABSOLUTE AUTO 0.04 K/mm3 (0.00-0.10); IMMATURE GRAN PERCENT AUTO 1 % (0-1); LYMPHOCYTES ABSOLUTE AUTO 0.75 K/mm3 (0.84-5.20); LYMPHOCYTES PERCENT AUTO 9 % (21-46); MONOCYTES ABSOLUTE AUTO 0.91 K/mm3 (0.16-1.47); MONOCYTES PERCENT AUTO 11 % (4-13); Mean Corpuscular HGB 28.9 pg (26.0-34.0); Mean Corpuscular HGB Conc 31.1 g/dL (31.5-36.5); Mean Corpuscular Volume 93 fL (80-100); NEUTROPHILS ABSOLUTE AUTO 6.59 K/mm3 (1.96-9.15); NEUTROPHILS PERCENT AUTO 79 % (41-73); Platelet Count 188 K/mm3 (150-400); Potassium (POC) 3.5 mmol/L (3.5-5.5); RDW Coefficient Variation 15.7 % (11.7-14.2); RDW Standard Deviation 53.9 fL (35.1-46.3); Red Blood Cell Count 3.11 M/mm3 (3.80-5.20); Sodium (POC) 137 mmol/L (135-148); Total CO2 (POC) 24 mmol/L (21-32); White Blood Cell Count 8.38 K/mm3 (4.00-11.30)
[2019-09-27] MEDS ORDERED: RALO60 PO (12:20)
[2019-09-27] MEDS ORDERED: ELIQUIS5 MG PO (12:20)
[2019-09-27 12:21] LABS: Alanine Aminotransfer (ALT/SGP 41 U/L (12-78); Albumin, Blood 3.2 g/dL (3.4-5.0); Albumin/Globulin Ratio 0.9 (0.8-1.8); Alk Phos 63 U/L (50-136); Anion Gap 8 mmol/L (6-16); Aspartate Aminotrans (AST/SGOT 47 U/L (12-37); Bilirubin, Total 0.6 mg/dL (0.1-1.0); Blood Urea Nitrogen 11 mg/dL (8-24); Bun/Creatinine Ratio 21.7 (12.0-20.0); CO2, Blood 25 mmol/L (21-32); Calcium, Blood 8.1 mg/dL (8.5-10.1); Chloride, Blood 106 mmol/L (98-108); Creatinine, Blood 0.51 mg/dL (0.40-1.00); Globulin, Blood 3.6 g/dL (2.2-4.0); Glomerular Filtration Rate >60 (60-); Glucose, Blood 72 mg/dL (70-99); Potassium, Blood 3.6 mmol/L (3.5-5.5); Sodium, Blood 139 mmol/L (136-145); Total Protein, Blood 6.8 g/dL (6.4-8.2)
[2019-09-27] MEDS ORDERED: METO25ER PO (12:21)
[2019-09-27] MEDS ORDERED: OMEPRAZOLE20 MG PO (12:21)
[2019-09-27] MEDS ORDERED: KLOR-CON M1010 MEQ PO (12:21)
[2019-09-27] MEDS ORDERED: FURO40 PO (12:21)
[2019-09-27] MEDS ORDERED: IBUP800 PO (12:21)
[2019-09-27] MEDS ORDERED: DICLOFENAC SOD100 G1 TOP (12:22)
[2019-09-27] MEDS ORDERED: SHINGRIX V50 MCG/0.5 (12:22)
[2019-09-27 12:34] LABS: Troponin I 0.874 ng/mL (0.000-0.040)
[2019-09-27 15:01] LABS: Magnesium, Blood 1.8 mg/dL (1.6-2.4)
[2019-09-27 15:02] LABS: Thyroid Stimulating Hormone 27.3 uIU/mL (0.360-4.800)
[2019-09-27 15:03] LABS: Creatine Kinase MB 3.1 ng/mL (0.0-3.6); Creatine Kinase MB Index 3.7 (0.0-4.0)
--- NOTE | 2019-09-27 15:14 | NUR ---
Echocardiogram completed.
[2019-09-27 15:47] LABS: Free Thyroxine 0.95 ng/dL (0.70-1.60)
[2019-09-27 15:48] LABS: Triiodothyronine, Free 1.06 pg/mL (2.18-3.98)
--- NOTE | 2019-09-27 18:02 | NUR ---
SHIFT SUMMARY ASSUMED CARE AT APPROXIMATELY 1700. PT ALERT AND ORIENTED. VS STABLE. O2 SATS REMAIN ABOVE 90% ON RA. PT COMPLAINS OF SHORTNESS OF BREATH. LS CLEAR, BUT DIM IN THE BASES. HR NSR IN THE 80'S. PT DENIES CP. PT ABLE TO AMBULATE TO BSC NEEDED TO VOID WITH SBA. PT RECEIVED LASIX PRIOR TO ADMISSION AND REPORTS FREQUENT VOIDS SINCE. PLAN FOR PT TO BE NPO AT MIDNIGHT FOR POSSIBLE HEART CATH IN AM. WILL RAGINI TO MONITOR AND REPORT TO ONCOMING RN. CALL LIGHT IN REACH.
--- NOTE | 2019-09-27 19:15 | NUR ---
ASSUMED CARE OF PT. IN NO ACUTE DISTRESS AT THIS TIME. DENIES ANY NEEDS. CALL LIGHT AND POSSESSIONS IN REACH, BED IN LOW POSITION. WILL CONTINUE TO MONITOR.
[2019-09-28 01:00] LABS: BASOPHILS ABSOLUTE AUTO 0.04 K/mm3 (0.00-0.23); BASOPHILS PERCENT AUTO 1 % (0-2); EOSINOPHILS ABSOLUTE AUTO 0.23 K/mm3 (0.00-0.68); EOSINOPHILS PERCENT AUTO 4 % (0-6); Hematocrit 26.4 % (33.0-51.0); Hemoglobin 8.2 g/dL (11.5-16.0); IMMATURE GRAN ABSOLUTE AUTO 0.02 K/mm3 (0.00-0.10); IMMATURE GRAN PERCENT AUTO 0 % (0-1); LYMPHOCYTES ABSOLUTE AUTO 0.79 K/mm3 (0.84-5.20); LYMPHOCYTES PERCENT AUTO 13 % (21-46); MONOCYTES ABSOLUTE AUTO 0.76 K/mm3 (0.16-1.47); MONOCYTES PERCENT AUTO 12 % (4-13); Mean Corpuscular HGB 28.6 pg (26.0-34.0); Mean Corpuscular HGB Conc 31.1 g/dL (31.5-36.5); Mean Corpuscular Volume 92 fL (80-100); Mean Platelet Volume 10.9 fL (9.1-12.4); NEUTROPHILS ABSOLUTE AUTO 4.41 K/mm3 (1.96-9.15); NEUTROPHILS PERCENT AUTO 71 % (41-73); Platelet Count 189 K/mm3 (150-400); RDW Coefficient Variation 15.4 % (11.7-14.2); RDW Standard Deviation 51.5 fL (35.1-46.3); Red Blood Cell Count 2.87 M/mm3 (3.80-5.20); White Blood Cell Count 6.25 K/mm3 (4.00-11.30)
[2019-09-28 01:18] LABS: Alanine Aminotransfer (ALT/SGP 35 U/L (12-78); Albumin, Blood 2.8 g/dL (3.4-5.0); Albumin/Globulin Ratio 0.8 (0.8-1.8); Alk Phos 56 U/L (50-136); Anion Gap 6 mmol/L (6-16); Aspartate Aminotrans (AST/SGOT 35 U/L (12-37); Bilirubin, Total 0.5 mg/dL (0.1-1.0); Blood Urea Nitrogen 10 mg/dL (8-24); Bun/Creatinine Ratio 16.7 (12.0-20.0); CO2, Blood 29 mmol/L (21-32); Calcium, Blood 7.8 mg/dL (8.5-10.1); Chloride, Blood 106 mmol/L (98-108); Globulin, Blood 3.3 g/dL (2.2-4.0); Glomerular Filtration Rate >60 (60-); Glucose, Blood 63 mg/dL (70-99); Magnesium, Blood 1.7 mg/dL (1.6-2.4); Potassium, Blood 3.7 mmol/L (3.5-5.5); Sodium, Blood 141 mmol/L (136-145); Total Protein, Blood 6.1 g/dL (6.4-8.2)
--- NOTE | 2019-09-28 05:48 | NUR ---
PT REMAINS ASLEEP AT THIS TIME IN NO ACUTE DISTRESS. WAS MONITORED EVERY 1-2 HOURS WITH NEEDS MET. DENIES ANY NEEDS AT THIS TIME. CALL LIGHT AND POSSESSIONS IN REACH, BED IN LOW AND LOCKED POSITION.
--- NOTE | 2019-09-28 08:55 | NUR ---
UPDATE PT TAKEN BY HEART CENTER STAFF FOR PROCEDURE. WILL AWAIT RETURN.
--- NOTE | 2019-09-28 11:00 | NUR ---
PT RETURNED WITH RIGHT RADIAL SITE. TR BAND IN PLACE WITH 12CC OF AIR. VS STABLE. WILL CONTINUE TO MONITOR CLOSELY.
--- NOTE | 2019-09-28 18:18 | NUR ---
SHIFT SUMMARY PT ALERT AND ORIENTED. VS STABLE. 02 SATS REMAIN ABOVE 90% ON RA. BP STABLE. HR NSR. RIGHT RADIAL SITE RECOVERED AND TR BAND HAS BEEN REMOVED. NO SIGNS OF BLEEDING, HEMTOMA, OR BRUISING. PT DENIES CP. PT COMPLAINS OF SOB WITH ACTIVITY, BUT SATS REMAIN ABOVE 90%. AT BEDSIDE. WILL CONTNUE TO MONITOR AND REPORT TO ONCOMING RN.
--- NOTE | 2019-09-28 21:00 | NUR ---
CARE ASSUMPTION PT A&O X4. VSS. MONITOR SHOWS NSR, HR 70's. LUNG SOUNDS CLEAR W/ SPO2 > 92% ON RA. R RADIAL ACCESS SITE WNL, W/ NO BLEEDING, NO HEMATOMA. TR BAND ABSENT, TRANSPARENT DRESSING COVERING SITE, ARM BOARD IN PLACE. PT W/ PREVIOUS R GROIN SITE, GAUZE & TRANSPARENT DRESSING IN PLACE, SITE BRUISED, W/ NO BLEEDING, NO HEMATOMA. MEDIPORT INFUSING NS @ [facility]. PT PROVIDED W/ PRN TYLENOL PER ORDERS FOR LOWER BACK & BILAT SHOULDER PAIN. WILL CONTINUE TO MONITOR AND PROVIDE CARE.
[2019-09-29 04:31] LABS: BASOPHILS ABSOLUTE AUTO 0.02 K/mm3 (0.00-0.23); BASOPHILS PERCENT AUTO 0 % (0-2); EOSINOPHILS PERCENT AUTO 7 % (0-6); Hematocrit 29.3 % (33.0-51.0); Hemoglobin 9.2 g/dL (11.5-16.0); IMMATURE GRAN ABSOLUTE AUTO 0.02 K/mm3 (0.00-0.10); IMMATURE GRAN PERCENT AUTO 0 % (0-1); LYMPHOCYTES ABSOLUTE AUTO 0.86 K/mm3 (0.84-5.20); LYMPHOCYTES PERCENT AUTO 16 % (21-46); MONOCYTES ABSOLUTE AUTO 0.66 K/mm3 (0.16-1.47); MONOCYTES PERCENT AUTO 12 % (4-13); Mean Corpuscular HGB 28.6 pg (26.0-34.0); Mean Corpuscular HGB Conc 31.4 g/dL (31.5-36.5); Mean Corpuscular Volume 91 fL (80-100); Mean Platelet Volume 10.4 fL (9.1-12.4); NEUTROPHILS ABSOLUTE AUTO 3.56 K/mm3 (1.96-9.15); NEUTROPHILS PERCENT AUTO 64 % (41-73); Platelet Count 256 K/mm3 (150-400); RDW Coefficient Variation 15.2 % (11.7-14.2); RDW Standard Deviation 50.8 fL (35.1-46.3); Red Blood Cell Count 3.22 M/mm3 (3.80-5.20); White Blood Cell Count 5.52 K/mm3 (4.00-11.30)
[2019-09-29 04:49] LABS: Alanine Aminotransfer (ALT/SGP 32 U/L (12-78); Albumin/Globulin Ratio 0.8 (0.8-1.8); Alk Phos 61 U/L (50-136); Anion Gap 8 mmol/L (6-16); Aspartate Aminotrans (AST/SGOT 23 U/L (12-37); Bilirubin, Total 0.5 mg/dL (0.1-1.0); Blood Urea Nitrogen 14 mg/dL (8-24); Bun/Creatinine Ratio 21.6 (12.0-20.0); CO2, Blood 30 mmol/L (21-32); Calcium, Blood 8.6 mg/dL (8.5-10.1); Chloride, Blood 102 mmol/L (98-108); Creatinine, Blood 0.65 mg/dL (0.40-1.00); Globulin, Blood 3.7 g/dL (2.2-4.0); Glomerular Filtration Rate >60 (60-); Glucose, Blood 78 mg/dL (70-99); Potassium, Blood 3.3 mmol/L (3.5-5.5); Sodium, Blood 140 mmol/L (136-145); Total Protein, Blood 6.7 g/dL (6.4-8.2)
[2019-09-29 04:56] LABS: Percent Saturation 8.6 % (15.0-50.0)
--- NOTE | 2019-09-29 05:19 | NUR ---
SHIFT SUMMARY PT CONTINUES TO BE A&O X4, CALM & COOPERATIVE. BP ELEVATED, OTHERWISE VSS. MONITOR SHOWS NSR, HR 60's-70's. LUNG SOUNDS CLEAR W/ SPO2 > 92% ON RA. R RADIAL SITE WNL, W/ ARM BOARD IN PLACE. R GROIN SITE W/ GAUZE & TRANSPARENT DRESSING W/ NOTED BRUISING T/O SITE. PT C/O LOWER BACK & BILAT SHOULDER PAIN, MEDICATED PER PT REQUEST/EMAR X2 THIS SHIFT. MEDIPORT INFUSING NS @ [facility]. WILL CONTINUE TO MONITOR AND PROVIDE CARE UNTIL REPORT OFF TO DAY SHIFT RN.
--- NOTE | 2019-09-29 07:30 | NUR ---
ASSUMED CARE: RECEIVED BEDSIDE REPORT FROM NOC RN. PT AWAKE UPON ENTERING ROOM. STATS SHE HAS SOME CONFUSION ON HER RECENT DIAGNOSIS OF FISURES THAT WERE NOTED IN HER HEART. ATTEMPTED TO EDUCATE WITHIN THIS RNS SCOPE AND INFORMED PT FURTHER EDUCATION AND PLAN OF CARE WILL BE DISCUSSED WITH THE PT BY THE RIBBON CLEANER. PT STATES DESIRE TO GET UP AND WALKING AROUND TODAY ALONG WITH SHOWERING. NOTIFIED HEEL SEAT SANDER OF PT DESIRE TO SHOWER. WILL DISCUSS WITH DR VEGA PT/OT. CALL LIGHT IN REACH. BED IN LOWEST POSSITION. WILL CONTINUE TO MONITOR AND ASSESS FURTHER.
--- NOTE | 2019-09-29 09:47 | NUR ---
R RADIAL SITE ASSESSMENT: PT TOOK SHOWER THIS MORNING WITH ARM BOARD IN PLACE TO REMIND PT NOT TO EXTEND OR FLEX HER WRIST. AFTER SHOWER SITE APPEARS WNL NO S/S OF BLEEDING NOTED. NEW ARM BOARD PUT IN PLACE. PT SITTING UP IN CHAIR AND APPEARS IN GOOD SPIRITS. WILL CONTINUE TO MONITOR AND ASSESS FURTHER.
--- NOTE | 2019-09-29 10:38 | NUR ---
Spiritual care visit conducted. Patient is sitting on a chair and alert. Patient's spouse, Raoul is present. Patient and Raoul tell me about patient's medical condition, about their family and about patient's hoahaoism background. Patient tells me of the health struggles from the past and how she has persevered through them. I listen empathically, reinforce helpful attitudes and practices, normalize patient's experience and provide pastoral breastfeeding peer counselor. Patient and Raoul respond well and show signs of an elevated mood. I will continue to remain availabel to patient and family.
--- NOTE | 2019-09-29 18:43 | NUR ---
SHIFT SUMMARY: EDUCATED PT ON HER NEW MEDICATION FOR COLCHICINE FOR POSSIBLE PERICARDITIS, PER DR MORENO. CPT AND FLUTTER WAS STARTED D/T DR MORENO'S RECEMENDATIONS TO THE HOSPITALIST. CHEST X-RAY IS SCHEDULED FOR IN THE MORNING. PT WAS CHANGED TO MEDICAL STATUS, BUT TO REMAIN ON TELE. NO ACUTE DISTESS NOTED T/O THE DAY. PT HAS BEEN MUCH MORE ACTIVE T/O THE DAY PER HER REPORT. WILL CONTINUE TO MONITOR AND REPORT TO ONCOMING RN. CALL LIGHT IN REACH.
--- NOTE | 2019-09-29 20:25 | NUR ---
ASSUMED CARE OF PATIENT AT 1900, PATIENT SITTING IN BEDSIDE CHAIR IN NO APPARENT DISTRESS. VITAL SIGNS WNL EXCEPTING BLOOD PRESSURE ELEVATED SYSTOLIC AT 180. SYSTOLIC BP MEASURED 151 WHEN RECHECKED AFTER HALF HOUR. PATIENT'S SURG SITE TO RIGHT WRIST IS CLEAN, DRY AND INTACT PROTECTED BY TEGADERM, PATIENT DENIES PAIN/TENDERNESS TO SITE, NO SWELLING OR REDNESS NOTED. WILL TREAT PATIENT PER EMAR AND UNIT PROTOCOL, WILL CONTINUE TO MONITOR
[2019-09-30 04:08] LABS: BASOPHILS ABSOLUTE AUTO 0.03 K/mm3 (0.00-0.23); BASOPHILS PERCENT AUTO 1 % (0-2); EOSINOPHILS ABSOLUTE AUTO 0.38 K/mm3 (0.00-0.68); EOSINOPHILS PERCENT AUTO 7 % (0-6); Hematocrit 29.8 % (33.0-51.0); Hemoglobin 9.5 g/dL (11.5-16.0); IMMATURE GRAN ABSOLUTE AUTO 0.02 K/mm3 (0.00-0.10); IMMATURE GRAN PERCENT AUTO 0 % (0-1); LYMPHOCYTES ABSOLUTE AUTO 0.79 K/mm3 (0.84-5.20); LYMPHOCYTES PERCENT AUTO 15 % (21-46); MONOCYTES PERCENT AUTO 13 % (4-13); Mean Corpuscular HGB 29.1 pg (26.0-34.0); Mean Corpuscular HGB Conc 31.9 g/dL (31.5-36.5); Mean Corpuscular Volume 91 fL (80-100); Mean Platelet Volume 10.4 fL (9.1-12.4); NEUTROPHILS ABSOLUTE AUTO 3.42 K/mm3 (1.96-9.15); NEUTROPHILS PERCENT AUTO 64 % (41-73); Platelet Count 279 K/mm3 (150-400); RDW Standard Deviation 50.7 fL (35.1-46.3); Red Blood Cell Count 3.27 M/mm3 (3.80-5.20); White Blood Cell Count 5.34 K/mm3 (4.00-11.30)
[2019-09-30 04:30] LABS: Alanine Aminotransfer (ALT/SGP 27 U/L (12-78); Albumin, Blood 2.9 g/dL (3.4-5.0); Albumin/Globulin Ratio 0.8 (0.8-1.8); Alk Phos 57 U/L (50-136); Anion Gap 7 mmol/L (6-16); Aspartate Aminotrans (AST/SGOT 16 U/L (12-37); Bilirubin, Total 0.4 mg/dL (0.1-1.0); Blood Urea Nitrogen 17 mg/dL (8-24); Bun/Creatinine Ratio 30.1 (12.0-20.0); CO2, Blood 28 mmol/L (21-32); Calcium, Blood 8.6 mg/dL (8.5-10.1); Chloride, Blood 104 mmol/L (98-108); Creatinine, Blood 0.56 mg/dL (0.40-1.00); Globulin, Blood 3.7 g/dL (2.2-4.0); Glomerular Filtration Rate >60 (60-); Glucose, Blood 84 mg/dL (70-99); Potassium, Blood 3.8 mmol/L (3.5-5.5); Sodium, Blood 139 mmol/L (136-145); Total Protein, Blood 6.6 g/dL (6.4-8.2)
--- NOTE | 2019-09-30 05:20 | NUR ---
SHIFT SUMMARY PATIENT C/O CHRONIC BACK PAIN AT AROUND 0200 AND WAS MEDICATED PER EMAR WITH DOCUMENTED REDUCTION IN DISCOMFORT. OTHERWISE NO ACUTE CHANGES FOR THE REMAINDER OF THIS SHIFT. PATIENT WAS COOPERATIVE WITH ALL ROUTINE INTERVENTIONS AND SPENT MOST OF THE SHIFT SLEEPING. VSS AND WNL FOR THIS PATIENT'S BASELINE, PER PATIENT. WILL CONTINUE TO MONITOR AND PROVIDE CARE, UNTIL PASSING REPORT AND CARE TO ONCOMING SHIFT. BED IS LOCKED AND LOW, CALL LIGHT W/IN REACH
--- NOTE | 2019-09-30 08:00 | NUR ---
PT SITTING UP IN CHAIR, A/OX3, PLEASANT AND COOPERATIVE WITH CARE, FOLLOWS COMMANDS WELL, DENIES PAIN, IS INTERESTED IN GOING HOME TODAY, LUNGS ARE CLEAR T/O, RESP EVEN AND UNLABORED, NO COUGH NOTED, HRR, TELE IN PLACE RUNNING SR IN THE 60-70'S, TRACE EDEMA NOTED TO B/L LE, PPP+1, CAP REFILL <3SEC, VS STABLE, AFEBRILE, IV SITE IS CLEAR AND PATENT, BTX4, ABD FLAT SOFT NONTENDER, VOIDS VIA BSC, SKIN C/W/D, HAS R RADIAL SITE THAT IS CLEAR AND RIGHT GROIN THAT HAS SOME BRUISING, MARINA TODD, CALL LIGHT IN REACH.
--- NOTE | 2019-09-30 10:50 | NUR ---
Spiritual care visit conducted. Neena is sitting on a chair and alert. Patient shares with me about her family history , beginning with her grandparents, and about her own personal personal and spiritual journey. I listen empathically, reinforce helpful attitudes and practices, and provide pastoral corrections counselor and prayer. Patient responds well and shows signs of restored shelbi. I will continue to remain available to patient and family.
--- NOTE | 2019-09-30 12:27 | NUR ---
pt sitting up in chair for lunch, no complaints. is hoping to go home later today, call light in reach.
[2019-09-30] MEDS ORDERED: COLCHICINE0.6 M1 PO (13:33)
--- NOTE | 2019-09-30 14:04 | NUR ---
Initial palliative care consult: Kathy is a 79 year old with a history of a-fib (s/p ablation on 09/24/19), rectal cancer in 2012 s/p chemo and radiation, breast cancer in 1996 s/p treatment, IBS and GERD. She had an ablation done for a-fib on 09/24/19. She became increasing SOB at home and returned to the hospital. She is getting ready for discharge at the time of my visit. Chart reviewed. Previous PC notes also reviewed. Spoke with pt re: POLST and AD forms. She states she has them at home and has attempted to fill them out on several occasions but always gets hung up on a question and then doesn't complete the form. Offered to have her come in with her as an outpatient to the palliative care department and set up a time to go over the forms so she can ask questions and fill them out. She is interested in this. She states she may bring her along too so they can get all their questions answered. Her [place] through the [place] that has already been completed. Pt requested PC business card and another blank POLST form to go home with her today. She states she is feeling better and is ready to go home. She has already contacted her to come and pick her up. Pt to contact PC department should she choose to have assistance with filling out her POLST and AD forms.
--- NOTE | 2019-09-30 14:47 | NUR ---
pt has been discharged to home, deacessed mediport after packing with heperin, went over discharge instructions with her she verbalized undertanding, meds were called into pharmacy for her. left via wheelchair with retort press operator in attendence. family here to take her home. she has all her belongings.
== END 2019-09-30 14:47 | disposition home or self-care (01) ==
LOC: ER 11:15 → PCU 11:16
PROVIDERS: Emergency Medicine; Internal Medicine; Nurse Practitioner Acute Care; ADMIT Internal Medicine
PROC: B2111ZZ Fluoroscopy of Multiple Coronary Arteries using Low Osmolar Contrast (ICD-10-PCS; principal; 2019-09-28)
PROC: 4A023N7 Measurement of Cardiac Sampling and Pressure, Left Heart, Percutaneous Approach (ICD-10-PCS; principal; 2019-09-28)
DX: R06.00 Dyspnea, unspecified (principal); I21.4 Non-ST elevation (NSTEMI) myocardial infarction; I25.10 Atherosclerotic heart disease of native coronary artery without angina pectoris; J90 Pleural effusion, not elsewhere classified; I31.3 Pericardial effusion (noninflammatory); I27.20 Pulmonary hypertension, unspecified; J98.11 Atelectasis; I48.91 Unspecified atrial fibrillation; I48.92 Unspecified atrial flutter; I10 Essential (primary) hypertension; K21.9 Gastro-esophageal reflux disease without esophagitis; K58.9 Irritable bowel syndrome, unspecified; G89.29 Other chronic pain; M54.9 Dorsalgia, unspecified; R79.89 Other specified abnormal findings of blood chemistry; K62.7 Radiation proctitis; R09.02 Hypoxemia; D64.9 Anemia, unspecified; R94.6 Abnormal results of thyroid function studies; Z85.3 Personal history of malignant neoplasm of breast; Z92.21 Personal history of antineoplastic chemotherapy; Z92.3 Personal history of irradiation; Z85.038 Personal history of other malignant neoplasm of large intestine; Z90.49 Acquired absence of other specified parts of digestive tract; Z98.51 Tubal ligation status; Z88.0 Allergy status to penicillin; Z88.5 Allergy status to narcotic agent; Z88.6 Allergy status to analgesic agent; Z88.8 Allergy status to other drugs, medicaments and biological substances; Z91.040 Latex allergy status; Z79.01 Long term (current) use of anticoagulants; Z79.1 Long term (current) use of non-steroidal anti-inflammatories (NSAID); Z79.899 Other long term (current) drug therapy
CPT/HCPCS: 71046; 71260; 76937; 80047; 80053; 82550; 82553; 82728; 83540; 83550; 83735; 83880; 84439; 84443; 84481; 84484; 85014; 85025; 85651; 86140; 86850; 86900; 86901; 93005; 93010; 93306; 93458; 94667; 94760; 96361; 96365-59; 96375; 96375-59; 96376; 97110; 97112; 97116; 97162; 97165; 97530; 97535; 99152; 99285-25; A9270; C1769; C1894; G0378; J0610; J1642; J1644; J1940; J2250; J3010; J7030; J7050; Q9967

== ENCOUNTER 2020-07-18 15:04 | Day surgery (SDC) | payer OTHER ==
[~2020-07-18 15:04] MED LIST changes: +COLCHICINE0.6 M1 PO; +CYAN500 PO; +DICLOFENAC SOD100 G1 TOP; +FERSU300 PO; +FURO40 PO; +KLOR-CON M1010 MEQ PO; +LOPE2C; +MELATONIN5 M4 PO; +MULTIVITAMINS1 EAC3 PO; +OMEPRAZOLE20 MG PO; +SHINGRIX V50 MCG/0.5; +VITAMIN D350 MCG PO
[2020-07-18 17:10] LABS: Anion Gap 9 mmol/L (6-16); Blood Urea Nitrogen 21 mg/dL (8-24); Bun/Creatinine Ratio 26.2 (12.0-20.0); CHOL/HDL RATIO 2.4; CO2, Blood 26 mmol/L (21-32); Calcium, Blood 8.7 mg/dL (8.5-10.1); Chloride, Blood 108 mmol/L (98-108); Cholesterol 162 mg/dL (50-200); Glomerular Filtration Rate >60 (60-); Glucose, Blood 68 mg/dL (70-99); HDL Cholesterol 67 mg/dL (>39); LDL/HDL RATIO 1.2; Low Density Lipoprotein Chol 79 mg/dL (0-110); Potassium, Blood 3.9 mmol/L (3.5-5.5); Sodium, Blood 143 mmol/L (136-145); Triglycerides 81 mg/dL (30-160); Very Low Density Lipoprot Chol 16 mg/dL (6-32)
== END 2020-07-18 15:45 | disposition home or self-care (01) ==
LOC: ATC 15:04
PROVIDERS: Family Medicine
DX: E87.6 Hypokalemia (principal); I48.91 Unspecified atrial fibrillation; I47.1 Supraventricular tachycardia; I10 Essential (primary) hypertension; I45.10 Unspecified right bundle-branch block; I48.92 Unspecified atrial flutter; K21.9 Gastro-esophageal reflux disease without esophagitis; K58.9 Irritable bowel syndrome, unspecified; G58.8 Other specified mononeuropathies; Z88.0 Allergy status to penicillin; Z88.5 Allergy status to narcotic agent; Z88.8 Allergy status to other drugs, medicaments and biological substances; Z91.040 Latex allergy status; Z79.01 Long term (current) use of anticoagulants; Z79.51 Long term (current) use of inhaled steroids; Z79.899 Other long term (current) drug therapy; Z51.5 Encounter for palliative care
CPT/HCPCS: 36591; 80048; 80061; J1642

== ENCOUNTER 2020-11-03 02:02 | Day surgery (SDC) | payer OTHER ==
[2020-11-03] MEDS ORDERED: GABA100 PO (14:23)
[2020-11-03 15:28] LABS: BASOPHILS ABSOLUTE AUTO 0.02 K/mm3 (0.00-0.23); BASOPHILS PERCENT AUTO 0 % (0-2); EOSINOPHILS ABSOLUTE AUTO 0.36 K/mm3 (0.00-0.68); EOSINOPHILS PERCENT AUTO 6 % (0-6); Hemoglobin 12.3 g/dL (11.5-16.0); IMMATURE GRAN ABSOLUTE AUTO 0.02 K/mm3 (0.00-0.10); IMMATURE GRAN PERCENT AUTO 0 % (0-1); LYMPHOCYTES ABSOLUTE AUTO 0.64 K/mm3 (0.84-5.20); LYMPHOCYTES PERCENT AUTO 10 % (21-46); MONOCYTES ABSOLUTE AUTO 0.49 K/mm3 (0.16-1.47); MONOCYTES PERCENT AUTO 8 % (4-13); Mean Corpuscular HGB 29.7 pg (26.0-34.0); Mean Corpuscular HGB Conc 32.4 g/dL (31.5-36.5); Mean Corpuscular Volume 92 fL (80-100); Mean Platelet Volume 9.9 fL (9.1-12.4); NEUTROPHILS ABSOLUTE AUTO 4.65 K/mm3 (1.96-9.15); NEUTROPHILS PERCENT AUTO 75 % (41-73); Platelet Count 287 K/mm3 (150-400); RDW Coefficient Variation 12.6 % (11.7-14.2); RDW Standard Deviation 42.5 fL (35.1-46.3); Red Blood Cell Count 4.14 M/mm3 (3.80-5.20); White Blood Cell Count 6.18 K/mm3 (4.00-11.30)
[2020-11-03 16:41] LABS: Alanine Aminotransfer (ALT/SGP 17 U/L (12-78); Albumin, Blood 3.3 g/dL (3.4-5.0); Albumin/Globulin Ratio 0.8 (0.8-1.8); Alk Phos 86 U/L (50-136); Anion Gap 9 mmol/L (6-16); Aspartate Aminotrans (AST/SGOT 14 U/L (12-37); Bilirubin, Total 0.4 mg/dL (0.1-1.0); Blood Urea Nitrogen 17 mg/dL (8-24); Bun/Creatinine Ratio 25.4 (12.0-20.0); CO2, Blood 26 mmol/L (21-32); Calcium, Blood 8.7 mg/dL (8.5-10.1); Chloride, Blood 105 mmol/L (98-108); Creatinine, Blood 0.67 mg/dL (0.40-1.00); Globulin, Blood 4.3 g/dL (2.2-4.0); Glomerular Filtration Rate >60 (60-); Glucose, Blood 83 mg/dL (70-99); Potassium, Blood 3.8 mmol/L (3.5-5.5); Sodium, Blood 140 mmol/L (136-145); Total Protein, Blood 7.6 g/dL (6.4-8.2)
== END 2020-11-03 14:23 | disposition home or self-care (01) ==
LOC: ATC 02:02
PROVIDERS: Family Medicine
DX: E53.9 Vitamin B deficiency, unspecified (principal); G47.61 Periodic limb movement disorder; I48.91 Unspecified atrial fibrillation; I10 Essential (primary) hypertension; M54.16 Radiculopathy, lumbar region; Z79.01 Long term (current) use of anticoagulants
CPT/HCPCS: 36591; 80053; 82607; 82746; 85025; J1642

== ENCOUNTER 2021-01-01 06:07 | Day surgery (SDC) | payer OTHER ==
[~2021-01-01] VITALS: Ht 160 cm; Wt 71.3 kg
[~2021-01-01 06:07] MED LIST changes: +GABA100 PO
[2021-01-01] MEDS ORDERED: LOPERAMIDE PO (06:59)
[2021-01-01] MEDS ORDERED: CARBONYL IRON45 MG PO (07:00)
--- NOTE | 2021-01-01 07:18 | NUR ---
History, Chart, Medications and Allergies reviewed before start of procedure. Patient confirms NPO status and agrees with scheduled surgery.
--- NOTE | 2021-01-01 07:37 | NUR ---
PRIOR TO TRANSFER TO SURGERY: KNEE HIGH TR HOSE WITH CALF PAS APPLIED TO BLE. NOZIN NASAL SENIOR SOLUTIONS ENGINEER X3 AMPULES USED TO CLEAN NARES BILAT PER DR KELLY HILL.
--- NOTE | 2021-01-01 12:20 | NUR ---
PT ABLE TO WIGGLE TOES BLE BUT UNABLE TO LIFT LEGS OFF OF BED.
--- NOTE | 2021-01-01 13:59 | NUR ---
THERAPY IN TO SEE PT.
--- NOTE | 2021-01-01 17:01 | NUR ---
SUMMARY NO ACUTE CHANGES SINCE ARRIVING TO UNIT FROM PACU. PT WORKED WITH THERAPY, SAT UP IN CHAIR, AMBULATED TO RESTROOM AND VOIDED. NOW BACK TO BED. DENIES PAIN. VSS. CALL LIGHT IN REACH. ABX INFUSING PER ORDERS.
--- NOTE | 2021-01-01 17:42 | NUR ---
PT GAVE STUDENT NURSE PERMISSION FOR CARE ON 01/01/21
[2021-01-02 04:15] LABS: BASOPHILS ABSOLUTE AUTO 0.01 K/mm3 (0.00-0.23); BASOPHILS PERCENT AUTO 0 % (0-2); EOSINOPHILS PERCENT AUTO 0 % (0-6); Hematocrit 33.5 % (33.0-51.0); Hemoglobin 10.7 g/dL (11.5-16.0); IMMATURE GRAN ABSOLUTE AUTO 0.04 K/mm3 (0.00-0.10); IMMATURE GRAN PERCENT AUTO 0 % (0-1); LYMPHOCYTES ABSOLUTE AUTO 0.66 K/mm3 (0.84-5.20); LYMPHOCYTES PERCENT AUTO 6 % (21-46); MONOCYTES ABSOLUTE AUTO 0.92 K/mm3 (0.16-1.47); MONOCYTES PERCENT AUTO 9 % (4-13); Mean Corpuscular HGB 29.4 pg (26.0-34.0); Mean Corpuscular HGB Conc 31.9 g/dL (31.5-36.5); Mean Corpuscular Volume 92 fL (80-100); Mean Platelet Volume 10.4 fL (9.1-12.4); NEUTROPHILS ABSOLUTE AUTO 9.19 K/mm3 (1.96-9.15); NEUTROPHILS PERCENT AUTO 85 % (41-73); Platelet Count 217 K/mm3 (150-400); RDW Coefficient Variation 14.6 % (11.7-14.2); RDW Standard Deviation 49.4 fL (35.1-46.3); Red Blood Cell Count 3.64 M/mm3 (3.80-5.20); White Blood Cell Count 10.82 K/mm3 (4.00-11.30)
[2021-01-02 04:31] LABS: Anion Gap 5 mmol/L (6-16); Blood Urea Nitrogen 20 mg/dL (8-24); CO2, Blood 28 mmol/L (21-32); Chloride, Blood 107 mmol/L (98-108); Creatinine, Blood 0.67 mg/dL (0.40-1.00); Glomerular Filtration Rate >60 (60-); Glucose, Blood 104 mg/dL (70-99); Magnesium, Blood 1.7 mg/dL (1.6-2.4); Potassium, Blood 3.9 mmol/L (3.5-5.5); Sodium, Blood 140 mmol/L (136-145)
--- NOTE | 2021-01-02 05:24 | NUR ---
SHIFT SUMMARY LYING IN SEMI FOWLERS WITH EYES OPEN. HAS RESTED WELL THIS SHIFT. NO SIGNIFICANT CHANGES NOTED. RESPIRATIONS EVEN AN UNLABORED ON RA. ADEQUATE URINARY OUTPUT NOTED. RIGHT HIP WITH AQUACEL THAT IS C/D/I, POLAR GRICELDA, TR'S, & SCD'S IN PLACE. DENIES PAIN OR DISCOMFORT AT THIS TIME. SAFETY MEASURES IN PLACE. WILL CONTINUE TO MONITOR AND ADDRESS NEEDS OR CONCERNS THEY ARISE. HAND OFF TO BE GIVEN TO ONCOMING SHIFT USING SBAR DURING BEDSIDE REPORT.
--- NOTE | 2021-01-02 07:58 | NUR ---
SHIFT ASSESSMENT SHIFT ASSESSMENT DOCUMENTATION BY LUCIO WALTER APPEARS TO BE ACCURATE. PT ALERT AND ORIENTED SITTING IN CHAIR AT TIME OF ASSESSMENT. PT ANSWERS QUESTIONS APPROPRIATELY. SHE COMPLAINS OF CHRONIC BACK PAIN AT 2/10. LUNG SOUNDS CLEAR IN ALL ESRRANO, RR EVEN AND UNLABORED, PT ON RA. HEART SOUNDS WNL. BOWEL SOUNDS PRESENT X4 QUADRANTS. AQUACEL DRESSING C/D/I ON R HIP, POLAR PACK IN PLACE. PLANTAR AND DORSAL FLEXION TO BLE IS EQUAL. PT IS A 1 ASSIST WITH GAIT BELT AND WALKER WHEN OOB. VSS. AM METOPROLOL HELD FOR BORDERLINE LOW BP.
[2021-01-02] MEDS ORDERED: ACET500 PO (09:41)
[2021-01-02] MEDS ORDERED: OXYC5 PO (09:42)
--- NOTE | 2021-01-02 14:02 | NUR ---
DISCHARGE PT PROVIDED WITH WRITTEN AND VERBAL DISCHARGE INSTRUCTIONS; PT AND SPOUSE REPORTED UNDERSTANDING. PT MEETING ALL GOALS PRIOR TO DISCHARGE. PT ABLE TO VOID, TOLERATING PO, PAIN MANAGED AND PT CLEARED THERAPY. DRESSINGS AND PRESCRIPTION PROVIDED. PT ESCORTED OUT AT APPROXIMATELY 1145.
== END 2021-01-02 11:40 | disposition home or self-care (01) ==
LOC: ORSCMMR 06:07 → ORD 07:30 → ORSCMMR 07:30 → SURS 10:30 → ORSCMMR 01-02 11:40
PROVIDERS: Orthopaedic Surgery
PROC: 0SR90J9 Replacement of Right Hip Joint with Synthetic Substitute, Cemented, Open Approach (ICD-10-PCS; principal; 2021-01-01 07:30)
DX: M16.11 Unilateral primary osteoarthritis, right hip (principal); I48.91 Unspecified atrial fibrillation; K21.9 Gastro-esophageal reflux disease without esophagitis; Z79.899 Other long term (current) drug therapy
CPT/HCPCS: 36415; 72170; 80048; 83735; 85025; 97110; 97112; 97116; 97161; 97530; A9270; C1776; J0171; J0690; J0735; J1100; J1885; J2250; J2370; J2405; J2704; J2795; J3010; J7120

== ENCOUNTER 2021-05-02 01:40 | Day surgery (SDC) | payer OTHER ==
[~2021-05-02 01:40] MED LIST changes: +ACET500 PO; +CARBONYL IRON45 MG PO; +LOPERAMIDE PO; +OXYC5 PO
[2021-05-02 15:32] LABS: BASOPHILS ABSOLUTE AUTO 0.02 K/mm3 (0.00-0.23); BASOPHILS PERCENT AUTO 0 % (0-2); EOSINOPHILS ABSOLUTE AUTO 0.15 K/mm3 (0.00-0.68); EOSINOPHILS PERCENT AUTO 3 % (0-6); Hematocrit 35.8 % (33.0-51.0); Hemoglobin 11.7 g/dL (11.5-16.0); IMMATURE GRAN ABSOLUTE AUTO 0.01 K/mm3 (0.00-0.10); IMMATURE GRAN PERCENT AUTO 0 % (0-1); LYMPHOCYTES ABSOLUTE AUTO 0.96 K/mm3 (0.84-5.20); LYMPHOCYTES PERCENT AUTO 19 % (21-46); MONOCYTES ABSOLUTE AUTO 0.54 K/mm3 (0.16-1.47); MONOCYTES PERCENT AUTO 11 % (4-13); Mean Corpuscular HGB 29.7 pg (26.0-34.0); Mean Corpuscular HGB Conc 32.7 g/dL (31.5-36.5); Mean Corpuscular Volume 91 fL (80-100); Mean Platelet Volume 10.9 fL (9.1-12.4); NEUTROPHILS ABSOLUTE AUTO 3.36 K/mm3 (1.96-9.15); NEUTROPHILS PERCENT AUTO 67 % (41-73); Platelet Count 239 K/mm3 (150-400); RDW Coefficient Variation 14.3 % (11.7-14.2); RDW Standard Deviation 48.3 fL (35.1-46.3); Red Blood Cell Count 3.94 M/mm3 (3.80-5.20); White Blood Cell Count 5.04 K/mm3 (4.00-11.30)
[2021-05-02 15:54] LABS: Alanine Aminotransfer (ALT/SGP 20 U/L (12-78); Albumin, Blood 3.7 g/dL (3.4-5.0); Alk Phos 56 U/L (50-136); Anion Gap 6 mmol/L (6-16); Aspartate Aminotrans (AST/SGOT 19 U/L (12-37); Bilirubin, Total 0.6 mg/dL (0.1-1.0); Blood Urea Nitrogen 15 mg/dL (8-24); Bun/Creatinine Ratio 20.7 (12.0-20.0); CO2, Blood 26 mmol/L (21-32); Calcium, Blood 8.7 mg/dL (8.5-10.1); Chloride, Blood 107 mmol/L (98-108); Creatinine, Blood 0.72 mg/dL (0.40-1.00); Ferritin, Serum 212 ng/mL (8-252); Globulin, Blood 3.6 g/dL (2.2-4.0); Glomerular Filtration Rate >60 (60-); Glucose, Blood 69 mg/dL (70-99); Iron Serum 103 ug/dL (50-170); Percent Saturation 36.3 % (15.0-50.0); Potassium, Blood 3.6 mmol/L (3.5-5.5); Sodium, Blood 139 mmol/L (136-145); Total Iron Binding Capacity 284 ug/dL (250-450); Total Protein, Blood 7.3 g/dL (6.4-8.2)
== END 2021-05-02 14:55 | disposition home or self-care (01) ==
LOC: ATC 01:40
PROVIDERS: Nurse Practitioner Family
DX: D50.9 Iron deficiency anemia, unspecified (principal); Z13.29 Encounter for screening for other suspected endocrine disorder; I10 Essential (primary) hypertension; C21.0 Malignant neoplasm of anus, unspecified
CPT/HCPCS: 36591; 80053; 82607; 82728; 82746; 83540; 83550; 84443; 85025; J1642

== ENCOUNTER 2021-08-20 10:34 | Day surgery (SDC) | payer OTHER ==
[~2021-08-20] VITALS: Ht 160 cm; Wt 71.2 kg
[~2021-08-20 10:34] MED LIST changes: +ELIQUIS5 M2 PO; -FURO40 PO; +THERA-D2000 UNIT PO; -VITAMIN D350 MCG PO
== END 2021-08-20 13:10 | disposition home or self-care (01) ==
LOC: ORSCSDS 10:34
PROVIDERS: Internal Medicine Gastroenterology
PROC: 0DBE8ZX Excision of Large Intestine, Via Natural or Artificial Opening Endoscopic, Diagnostic (ICD-10-PCS; principal; 2021-08-20 11:45)
PROC: 0DBN8ZX Excision of Sigmoid Colon, Via Natural or Artificial Opening Endoscopic, Diagnostic (ICD-10-PCS; principal; 2021-08-20 11:45)
DX: R19.7 Diarrhea, unspecified (principal); K57.30 Diverticulosis of large intestine without perforation or abscess without bleeding; Z86.010 Personal history of colon polyps; D12.5 Benign neoplasm of sigmoid colon; I10 Essential (primary) hypertension; Z79.01 Long term (current) use of anticoagulants; Z79.899 Other long term (current) drug therapy
CPT/HCPCS: 88305; J1642; J2704; J7120

== ENCOUNTER 2021-08-28 05:53 | Day surgery (SDC) | payer OTHER ==
[2021-08-28 15:59] LABS: BASOPHILS ABSOLUTE AUTO 0.02 K/mm3 (0.00-0.23); BASOPHILS PERCENT AUTO 0 % (0-2); EOSINOPHILS ABSOLUTE AUTO 0.19 K/mm3 (0.00-0.68); EOSINOPHILS PERCENT AUTO 4 % (0-6); Hematocrit 36.7 % (33.0-51.0); Hemoglobin 11.9 g/dL (11.5-16.0); IMMATURE GRAN ABSOLUTE AUTO 0.02 K/mm3 (0.00-0.10); IMMATURE GRAN PERCENT AUTO 0 % (0-1); LYMPHOCYTES PERCENT AUTO 21 % (21-46); MONOCYTES ABSOLUTE AUTO 0.61 K/mm3 (0.16-1.47); MONOCYTES PERCENT AUTO 12 % (4-13); Mean Corpuscular HGB 29.8 pg (26.0-34.0); Mean Corpuscular HGB Conc 32.4 g/dL (31.5-36.5); Mean Corpuscular Volume 92 fL (80-100); Mean Platelet Volume 10.5 fL (9.1-12.4); NEUTROPHILS ABSOLUTE AUTO 3.33 K/mm3 (1.96-9.15); NEUTROPHILS PERCENT AUTO 63 % (41-73); Platelet Count 244 K/mm3 (150-400); RDW Coefficient Variation 13.6 % (11.7-14.2); RDW Standard Deviation 46.5 fL (35.1-46.3); White Blood Cell Count 5.27 K/mm3 (4.00-11.30)
[2021-08-28 16:34] LABS: Anion Gap 5 mmol/L (6-16); Blood Urea Nitrogen 16 mg/dL (8-24); Bun/Creatinine Ratio 24.5 (12.0-20.0); CO2, Blood 27 mmol/L (21-32); Calcium, Blood 8.6 mg/dL (8.5-10.1); Chloride, Blood 108 mmol/L (98-108); Creatinine, Blood 0.65 mg/dL (0.40-1.00); Glomerular Filtration Rate >60 (60-); Glucose, Blood 96 mg/dL (70-99); Potassium, Blood 3.7 mmol/L (3.5-5.5); Sodium, Blood 140 mmol/L (136-145)
== END 2021-08-28 15:26 | disposition home or self-care (01) ==
LOC: ATC 05:53
PROVIDERS: Internal Medicine Gastroenterology
DX: R19.7 Diarrhea, unspecified (principal); K21.9 Gastro-esophageal reflux disease without esophagitis; I10 Essential (primary) hypertension; Z85.3 Personal history of malignant neoplasm of breast; Z85.038 Personal history of other malignant neoplasm of large intestine; Z88.5 Allergy status to narcotic agent; Z88.0 Allergy status to penicillin; Z88.6 Allergy status to analgesic agent; Z91.040 Latex allergy status
CPT/HCPCS: 80048; 85025; J1642

== ENCOUNTER → 2021-09-05 | Outpatient (CLI) | payer OTHER | END | disposition home or self-care (01) | LOC: LAB SHORT 09:05 | DX: L82.1 Other seborrheic keratosis (principal) | CPT/HCPCS: 88305 ==

== ENCOUNTER 2021-10-01 03:54 | Day surgery (SDC) | payer OTHER ==
[2021-10-01] MEDS ORDERED: COLESEVELAM HC625 MG PO (15:11)
== END 2021-10-01 15:09 | disposition home or self-care (01) ==
LOC: ATC 03:54
DX: C21.0 Malignant neoplasm of anus, unspecified (principal); I10 Essential (primary) hypertension; K21.9 Gastro-esophageal reflux disease without esophagitis; Z88.0 Allergy status to penicillin; Z88.5 Allergy status to narcotic agent; Z88.8 Allergy status to other drugs, medicaments and biological substances; Z91.040 Latex allergy status
CPT/HCPCS: J1642

== ENCOUNTER 2021-10-31 00:18 | Day surgery (SDC) | payer OTHER ==
[~2021-10-31 00:18] MED LIST changes: +COLESEVELAM HC625 MG PO
== END 2021-10-31 23:33 | disposition home or self-care (01) ==
LOC: WOUND 00:18
DX: K62.7 Radiation proctitis (principal); Y84.2 Radiological procedure and radiotherapy as the cause of abnormal reaction of the patient, or of later complication, without mention of misadventure at the time of the procedure; I10 Essential (primary) hypertension; Z85.048 Personal history of other malignant neoplasm of rectum, rectosigmoid junction, and anus
CPT/HCPCS: G0463

== ENCOUNTER 2021-12-04 05:02 | Day surgery (SDC) | payer OTHER | END 2021-12-04 23:51 | disposition home or self-care (01) | LOC: HBO 05:02 | DX: L59.8 Other specified disorders of the skin and subcutaneous tissue related to radiation (principal); K62.7 Radiation proctitis; Y84.2 Radiological procedure and radiotherapy as the cause of abnormal reaction of the patient, or of later complication, without mention of misadventure at the time of the procedure | CPT/HCPCS: G0277 ==

== ENCOUNTER 2021-12-05 01:11 | Day surgery (SDC) | payer OTHER | END 2021-12-05 23:12 | disposition home or self-care (01) | LOC: HBO 01:11 | DX: K62.7 Radiation proctitis (principal); L59.8 Other specified disorders of the skin and subcutaneous tissue related to radiation; Y84.2 Radiological procedure and radiotherapy as the cause of abnormal reaction of the patient, or of later complication, without mention of misadventure at the time of the procedure | CPT/HCPCS: G0277 ==

== ENCOUNTER 2021-12-06 01:19 | Day surgery (SDC) | payer OTHER | END 2021-12-06 23:29 | disposition home or self-care (01) | LOC: HBO 01:19 → WOUND 15:19 → HBO 23:29 | DX: K62.7 Radiation proctitis (principal); L59.8 Other specified disorders of the skin and subcutaneous tissue related to radiation; Y84.2 Radiological procedure and radiotherapy as the cause of abnormal reaction of the patient, or of later complication, without mention of misadventure at the time of the procedure | CPT/HCPCS: G0277 ==

== ENCOUNTER 2021-12-07 02:41 | Day surgery (SDC) | payer OTHER | END 2021-12-07 23:17 | disposition home or self-care (01) | LOC: HBO 02:41 | DX: L59.8 Other specified disorders of the skin and subcutaneous tissue related to radiation (principal); K62.7 Radiation proctitis | CPT/HCPCS: G0277 ==

== ENCOUNTER 2021-12-11 02:21 | Day surgery (SDC) | payer OTHER | END 2021-12-11 23:22 | disposition home or self-care (01) | LOC: HBO 02:21 | DX: K62.7 Radiation proctitis (principal); L59.8 Other specified disorders of the skin and subcutaneous tissue related to radiation; Y84.2 Radiological procedure and radiotherapy as the cause of abnormal reaction of the patient, or of later complication, without mention of misadventure at the time of the procedure | CPT/HCPCS: G0277 ==

== ENCOUNTER 2021-12-14 03:03 | Day surgery (SDC) | payer OTHER | END 2021-12-14 23:01 | disposition home or self-care (01) | LOC: HBO 03:03 | DX: K62.7 Radiation proctitis (principal); L59.8 Other specified disorders of the skin and subcutaneous tissue related to radiation; Y84.2 Radiological procedure and radiotherapy as the cause of abnormal reaction of the patient, or of later complication, without mention of misadventure at the time of the procedure | CPT/HCPCS: G0277 ==

== ENCOUNTER 2021-12-18 02:37 | Day surgery (SDC) | payer OTHER | END 2021-12-18 22:54 | disposition home or self-care (01) | LOC: HBO 02:37 | DX: L59.8 Other specified disorders of the skin and subcutaneous tissue related to radiation (principal); K62.7 Radiation proctitis; Y84.2 Radiological procedure and radiotherapy as the cause of abnormal reaction of the patient, or of later complication, without mention of misadventure at the time of the procedure | CPT/HCPCS: G0277 ==

== ENCOUNTER 2021-12-19 00:20 | Day surgery (SDC) | payer OTHER | END 2021-12-19 22:54 | disposition home or self-care (01) | LOC: HBO 00:20 | DX: K62.7 Radiation proctitis (principal); L59.8 Other specified disorders of the skin and subcutaneous tissue related to radiation | CPT/HCPCS: G0277 ==

== ENCOUNTER 2021-12-20 03:37 | Day surgery (SDC) | payer OTHER | END 2021-12-20 23:33 | disposition home or self-care (01) | LOC: HBO 03:37 | DX: L59.8 Other specified disorders of the skin and subcutaneous tissue related to radiation (principal); K62.7 Radiation proctitis | CPT/HCPCS: G0277 ==

== ENCOUNTER 2021-12-21 01:40 | Day surgery (SDC) | payer OTHER | END 2021-12-21 23:22 | disposition home or self-care (01) | LOC: HBO 01:40 | DX: K62.7 Radiation proctitis (principal); L59.8 Other specified disorders of the skin and subcutaneous tissue related to radiation | CPT/HCPCS: G0277 ==

== ENCOUNTER 2021-12-24 08:00 | Day surgery (SDC) | payer OTHER | END 2021-12-24 23:59 | disposition home or self-care (01) | LOC: HBO 08:00 | DX: K62.7 Radiation proctitis (principal); L59.8 Other specified disorders of the skin and subcutaneous tissue related to radiation; Y84.2 Radiological procedure and radiotherapy as the cause of abnormal reaction of the patient, or of later complication, without mention of misadventure at the time of the procedure | CPT/HCPCS: G0277 ==

== ENCOUNTER 2021-12-25 08:00 | Day surgery (SDC) | payer OTHER | END 2021-12-25 23:59 | disposition home or self-care (01) | LOC: HBO 08:00 | DX: K62.7 Radiation proctitis (principal); L59.8 Other specified disorders of the skin and subcutaneous tissue related to radiation | CPT/HCPCS: G0277 ==

== ENCOUNTER 2021-12-26 01:47 | Day surgery (SDC) | payer OTHER | END 2021-12-26 23:19 | disposition home or self-care (01) | LOC: HBO 01:47 | DX: L59.8 Other specified disorders of the skin and subcutaneous tissue related to radiation (principal); K62.7 Radiation proctitis; Y84.2 Radiological procedure and radiotherapy as the cause of abnormal reaction of the patient, or of later complication, without mention of misadventure at the time of the procedure | CPT/HCPCS: G0277 ==

== ENCOUNTER 2021-12-27 01:01 | Day surgery (SDC) | payer OTHER | END 2021-12-27 22:55 | disposition home or self-care (01) | LOC: HBO 01:01 | DX: K62.7 Radiation proctitis (principal); L59.8 Other specified disorders of the skin and subcutaneous tissue related to radiation; Y84.2 Radiological procedure and radiotherapy as the cause of abnormal reaction of the patient, or of later complication, without mention of misadventure at the time of the procedure | CPT/HCPCS: G0277 ==

== ENCOUNTER 2021-12-28 00:31 | Day surgery (SDC) | payer OTHER | END 2021-12-28 23:12 | disposition home or self-care (01) | LOC: HBO 00:31 | DX: K62.7 Radiation proctitis (principal); L59.8 Other specified disorders of the skin and subcutaneous tissue related to radiation; Y84.2 Radiological procedure and radiotherapy as the cause of abnormal reaction of the patient, or of later complication, without mention of misadventure at the time of the procedure | CPT/HCPCS: G0277 ==

== ENCOUNTER 2021-12-31 08:00 | Day surgery (SDC) | payer OTHER | END 2021-12-31 23:59 | disposition home or self-care (01) | LOC: HBO 08:00 | DX: K62.7 Radiation proctitis (principal); L59.8 Other specified disorders of the skin and subcutaneous tissue related to radiation; Y84.2 Radiological procedure and radiotherapy as the cause of abnormal reaction of the patient, or of later complication, without mention of misadventure at the time of the procedure | CPT/HCPCS: G0277 ==

== ENCOUNTER 2022-01-01 02:19 | Day surgery (SDC) | payer OTHER | END 2022-01-01 22:56 | disposition home or self-care (01) | LOC: HBO 02:19 | DX: L59.8 Other specified disorders of the skin and subcutaneous tissue related to radiation (principal); K62.7 Radiation proctitis; Y84.2 Radiological procedure and radiotherapy as the cause of abnormal reaction of the patient, or of later complication, without mention of misadventure at the time of the procedure | CPT/HCPCS: G0277 ==

== ENCOUNTER 2022-01-02 01:53 | Day surgery (SDC) | payer OTHER | END 2022-01-02 23:07 | disposition home or self-care (01) | LOC: HBO 01:53 | DX: K62.7 Radiation proctitis (principal); L59.8 Other specified disorders of the skin and subcutaneous tissue related to radiation; Y84.2 Radiological procedure and radiotherapy as the cause of abnormal reaction of the patient, or of later complication, without mention of misadventure at the time of the procedure | CPT/HCPCS: G0277 ==

== ENCOUNTER 2022-01-02 02:15 | Day surgery (SDC) | payer OTHER | END 2022-01-02 23:08 | disposition home or self-care (01) | LOC: WOUND 02:15 | DX: L59.8 Other specified disorders of the skin and subcutaneous tissue related to radiation (principal); K62.7 Radiation proctitis; Y84.2 Radiological procedure and radiotherapy as the cause of abnormal reaction of the patient, or of later complication, without mention of misadventure at the time of the procedure | CPT/HCPCS: G0463 ==

== ENCOUNTER 2022-01-03 01:09 | Day surgery (SDC) | payer OTHER | END 2022-01-03 22:45 | disposition home or self-care (01) | LOC: HBO 01:09 | DX: L59.8 Other specified disorders of the skin and subcutaneous tissue related to radiation (principal); K62.7 Radiation proctitis | CPT/HCPCS: G0277 ==

== ENCOUNTER 2022-01-04 03:02 | Day surgery (SDC) | payer OTHER | END 2022-01-04 23:11 | disposition home or self-care (01) | LOC: HBO 03:02 | DX: K62.7 Radiation proctitis (principal); L59.8 Other specified disorders of the skin and subcutaneous tissue related to radiation | CPT/HCPCS: G0277 ==

== ENCOUNTER 2022-01-07 01:57 | Day surgery (SDC) | payer OTHER | END 2022-01-07 22:47 | disposition home or self-care (01) | LOC: HBO 01:57 | DX: L59.8 Other specified disorders of the skin and subcutaneous tissue related to radiation (principal); K62.7 Radiation proctitis; Y84.2 Radiological procedure and radiotherapy as the cause of abnormal reaction of the patient, or of later complication, without mention of misadventure at the time of the procedure | CPT/HCPCS: G0277 ==

== ENCOUNTER 2022-01-08 02:10 | Day surgery (SDC) | payer OTHER | END 2022-01-08 23:27 | disposition home or self-care (01) | LOC: HBO 02:10 | DX: L59.8 Other specified disorders of the skin and subcutaneous tissue related to radiation (principal); K62.7 Radiation proctitis; Y84.2 Radiological procedure and radiotherapy as the cause of abnormal reaction of the patient, or of later complication, without mention of misadventure at the time of the procedure | CPT/HCPCS: G0277 ==

== ENCOUNTER 2022-01-09 03:17 | Day surgery (SDC) | payer OTHER | END 2022-01-09 23:03 | disposition home or self-care (01) | LOC: HBO 03:17 | DX: K62.7 Radiation proctitis (principal); L59.8 Other specified disorders of the skin and subcutaneous tissue related to radiation | CPT/HCPCS: G0277 ==

== ENCOUNTER 2022-01-10 01:35 | Day surgery (SDC) | payer OTHER | END 2022-01-10 23:39 | disposition home or self-care (01) | LOC: HBO 01:35 | DX: K62.7 Radiation proctitis (principal); L59.8 Other specified disorders of the skin and subcutaneous tissue related to radiation; Z88.0 Allergy status to penicillin; Z88.5 Allergy status to narcotic agent; Z88.6 Allergy status to analgesic agent | CPT/HCPCS: G0277 ==

== ENCOUNTER 2022-01-11 01:03 | Day surgery (SDC) | payer OTHER | END 2022-01-11 23:00 | disposition home or self-care (01) | LOC: HBO 01:03 | DX: K62.7 Radiation proctitis (principal); L59.8 Other specified disorders of the skin and subcutaneous tissue related to radiation | CPT/HCPCS: G0277 ==

== ENCOUNTER 2022-01-14 01:15 | Day surgery (SDC) | payer OTHER | END 2022-01-14 23:06 | disposition home or self-care (01) | LOC: HBO 01:15 | DX: K62.7 Radiation proctitis (principal); L59.8 Other specified disorders of the skin and subcutaneous tissue related to radiation | CPT/HCPCS: G0277 ==

== ENCOUNTER 2022-01-15 01:25 | Day surgery (SDC) | payer OTHER | END 2022-01-15 23:46 | disposition home or self-care (01) | LOC: HBO 01:25 | DX: K62.7 Radiation proctitis (principal); L59.8 Other specified disorders of the skin and subcutaneous tissue related to radiation | CPT/HCPCS: G0277 ==

== ENCOUNTER 2022-01-16 01:13 | Day surgery (SDC) | payer OTHER | END 2022-01-16 22:44 | disposition home or self-care (01) | LOC: HBO 01:13 | DX: L59.8 Other specified disorders of the skin and subcutaneous tissue related to radiation (principal); K62.7 Radiation proctitis; Y84.2 Radiological procedure and radiotherapy as the cause of abnormal reaction of the patient, or of later complication, without mention of misadventure at the time of the procedure | CPT/HCPCS: G0277 ==

== ENCOUNTER 2022-01-17 02:05 | Day surgery (SDC) | payer OTHER | END 2022-01-17 23:15 | disposition home or self-care (01) | LOC: HBO 02:05 | DX: L59.8 Other specified disorders of the skin and subcutaneous tissue related to radiation (principal); K62.7 Radiation proctitis | CPT/HCPCS: G0277 ==

== ENCOUNTER 2022-01-18 01:16 | Day surgery (SDC) | payer OTHER | END 2022-01-18 22:47 | disposition home or self-care (01) | LOC: HBO 01:16 | DX: L59.8 Other specified disorders of the skin and subcutaneous tissue related to radiation (principal); K62.7 Radiation proctitis; Y84.2 Radiological procedure and radiotherapy as the cause of abnormal reaction of the patient, or of later complication, without mention of misadventure at the time of the procedure | CPT/HCPCS: G0277 ==

== ENCOUNTER 2022-01-21 01:32 | Day surgery (SDC) | payer OTHER | END 2022-01-21 22:53 | disposition home or self-care (01) | LOC: HBO 01:32 | DX: K62.7 Radiation proctitis (principal) | CPT/HCPCS: G0277 ==

== ENCOUNTER 2022-01-22 01:28 | Day surgery (SDC) | payer OTHER | END 2022-01-22 23:17 | disposition home or self-care (01) | LOC: HBO 01:28 | DX: K62.7 Radiation proctitis (principal); L59.8 Other specified disorders of the skin and subcutaneous tissue related to radiation; Y84.2 Radiological procedure and radiotherapy as the cause of abnormal reaction of the patient, or of later complication, without mention of misadventure at the time of the procedure | CPT/HCPCS: G0277 ==

== ENCOUNTER 2022-01-23 00:21 | Day surgery (SDC) | payer OTHER | END 2022-01-23 15:20 | disposition home or self-care (01) | LOC: ATC 00:21 | DX: Z45.2 Encounter for adjustment and management of vascular access device (principal); K21.9 Gastro-esophageal reflux disease without esophagitis; I10 Essential (primary) hypertension; Z85.048 Personal history of other malignant neoplasm of rectum, rectosigmoid junction, and anus; Z88.5 Allergy status to narcotic agent; Z88.0 Allergy status to penicillin; Z88.6 Allergy status to analgesic agent; Z91.040 Latex allergy status; Z85.3 Personal history of malignant neoplasm of breast; Z96.649 Presence of unspecified artificial hip joint | CPT/HCPCS: J1642 ==

== ENCOUNTER 2022-01-23 00:41 | Day surgery (SDC) | payer OTHER | END 2022-01-23 22:48 | disposition home or self-care (01) | LOC: HBO 00:41 | DX: K62.7 Radiation proctitis (principal); L59.8 Other specified disorders of the skin and subcutaneous tissue related to radiation; Y84.2 Radiological procedure and radiotherapy as the cause of abnormal reaction of the patient, or of later complication, without mention of misadventure at the time of the procedure | CPT/HCPCS: G0277 ==

== ENCOUNTER 2022-01-24 01:57 | Day surgery (SDC) | payer OTHER | END 2022-01-24 23:49 | disposition home or self-care (01) | LOC: HBO 01:57 | DX: L59.8 Other specified disorders of the skin and subcutaneous tissue related to radiation (principal); K62.7 Radiation proctitis | CPT/HCPCS: G0277 ==

== ENCOUNTER 2022-01-25 00:27 | Day surgery (SDC) | payer OTHER | END 2022-01-25 22:52 | disposition home or self-care (01) | LOC: HBO 00:27 | DX: L59.8 Other specified disorders of the skin and subcutaneous tissue related to radiation (principal); K62.7 Radiation proctitis | CPT/HCPCS: G0277 ==

== ENCOUNTER 2022-01-28 01:07 | Day surgery (SDC) | payer OTHER | END 2022-01-28 23:24 | disposition home or self-care (01) | LOC: HBO 01:07 | DX: L59.8 Other specified disorders of the skin and subcutaneous tissue related to radiation (principal); K62.7 Radiation proctitis | CPT/HCPCS: G0277 ==

== ENCOUNTER 2022-01-29 03:05 | Day surgery (SDC) | payer OTHER | END 2022-01-29 23:28 | disposition home or self-care (01) | LOC: HBO 03:05 | DX: L59.8 Other specified disorders of the skin and subcutaneous tissue related to radiation (principal); K62.7 Radiation proctitis | CPT/HCPCS: G0277 ==

== ENCOUNTER 2022-01-30 02:33 | Day surgery (SDC) | payer OTHER | END 2022-01-30 23:11 | disposition home or self-care (01) | LOC: HBO 02:33 | DX: L59.8 Other specified disorders of the skin and subcutaneous tissue related to radiation (principal); K62.7 Radiation proctitis | CPT/HCPCS: G0277 ==

== ENCOUNTER 2022-01-31 00:58 | Day surgery (SDC) | payer OTHER | END 2022-01-31 22:42 | disposition home or self-care (01) | LOC: HBO 00:58 | DX: K62.7 Radiation proctitis (principal); L59.8 Other specified disorders of the skin and subcutaneous tissue related to radiation | CPT/HCPCS: G0277 ==

== ENCOUNTER 2022-02-01 01:58 | Day surgery (SDC) | payer OTHER | END 2022-02-01 23:02 | disposition home or self-care (01) | LOC: HBO 01:58 | DX: L59.8 Other specified disorders of the skin and subcutaneous tissue related to radiation (principal); K62.7 Radiation proctitis | CPT/HCPCS: G0277 ==

== ENCOUNTER 2022-02-01 01:59 | Day surgery (SDC) | payer OTHER | END 2022-02-01 23:02 | disposition home or self-care (01) | LOC: WOUND 01:59 | DX: L59.8 Other specified disorders of the skin and subcutaneous tissue related to radiation (principal); K62.7 Radiation proctitis; C21.0 Malignant neoplasm of anus, unspecified | CPT/HCPCS: G0463 ==

== ENCOUNTER 2022-03-11 01:06 | Day surgery (SDC) | payer OTHER ==
[2022-03-11 15:40] LABS: BASOPHILS ABSOLUTE AUTO 0.03 K/mm3 (0.00-0.23); BASOPHILS PERCENT AUTO 1 % (0-2); EOSINOPHILS PERCENT AUTO 4 % (0-6); Hematocrit 35.9 % (33.0-51.0); Hemoglobin 11.6 g/dL (11.5-16.0); IMMATURE GRAN ABSOLUTE AUTO 0.02 K/mm3 (0.00-0.10); IMMATURE GRAN PERCENT AUTO 0 % (0-1); LYMPHOCYTES ABSOLUTE AUTO 1.07 K/mm3 (0.84-5.20); LYMPHOCYTES PERCENT AUTO 19 % (21-46); MONOCYTES ABSOLUTE AUTO 0.64 K/mm3 (0.16-1.47); MONOCYTES PERCENT AUTO 11 % (4-13); Mean Corpuscular HGB 30.2 pg (26.0-34.0); Mean Corpuscular HGB Conc 32.3 g/dL (31.5-36.5); Mean Corpuscular Volume 94 fL (80-100); NEUTROPHILS PERCENT AUTO 66 % (41-73); Platelet Count 252 K/mm3 (150-400); RDW Standard Deviation 47.2 fL (35.1-46.3); Red Blood Cell Count 3.84 M/mm3 (3.80-5.20); White Blood Cell Count 5.76 K/mm3 (4.00-11.30)
[2022-03-11 15:49] LABS: Bun/Creatinine Ratio 27.6 (12.0-20.0); Calcium, Blood 8.5 mg/dL (8.5-10.1); Creatinine, Blood 0.8 mg/dL (0.40-1.00); Potassium, Blood 3.7 mmol/L (3.5-5.5)
== END 2022-03-11 15:13 | disposition home or self-care (01) ==
LOC: ATC 01:06
PROVIDERS: Nurse Practitioner Family
DX: D21.22 Benign neoplasm of connective and other soft tissue of left lower limb, including hip (principal); K21.9 Gastro-esophageal reflux disease without esophagitis; I10 Essential (primary) hypertension; M85.80 Other specified disorders of bone density and structure, unspecified site; Z88.6 Allergy status to analgesic agent; Z88.0 Allergy status to penicillin; Z88.5 Allergy status to narcotic agent; Z91.040 Latex allergy status; D64.9 Anemia, unspecified
CPT/HCPCS: 36591; 80048; 85025; J1642

== ENCOUNTER 2022-03-20 09:02 | Day surgery (SDC) | payer OTHER ==
--- NOTE | 2022-03-20 10:00 | NUR ---
03/20/22 Meredith Childers 7029 TIME OUT TAKEN TO VERIFY CORRECT PT, SITE, PROCEEDURE AND ALLERGIES. PT ELECTED TO PROCEED WITH THE ANKLE BLOCK. RELAXING MEDICATION PROVIDED BY DR. NIÑO. VS STABLE THROUGHTOUT. PT TOLERATED WELL.
== END 2022-03-20 11:45 | disposition home or self-care (01) ==
LOC: ORSCSDS 09:02
PROVIDERS: Orthopaedic Surgery
PROC: 0JBP0ZZ Excision of Left Lower Leg Subcutaneous Tissue and Fascia, Open Approach (ICD-10-PCS; principal; 2022-03-20 10:30)
DX: D21.22 Benign neoplasm of connective and other soft tissue of left lower limb, including hip (principal); I48.0 Paroxysmal atrial fibrillation; I10 Essential (primary) hypertension; K21.9 Gastro-esophageal reflux disease without esophagitis; E66.9 Obesity, unspecified; Z68.30 Body mass index [BMI] 30.0-30.9, adult; Z79.899 Other long term (current) drug therapy
CPT/HCPCS: 88304; J0171; J0690; J1642; J2704; J3010; J7120

== ENCOUNTER 2022-05-16 02:46 | Day surgery (SDC) | payer OTHER | END 2022-05-16 15:15 | disposition home or self-care (01) | LOC: ATC 02:46 | DX: Z45.2 Encounter for adjustment and management of vascular access device (principal); F51.04 Psychophysiologic insomnia; K21.9 Gastro-esophageal reflux disease without esophagitis; I10 Essential (primary) hypertension; Z85.048 Personal history of other malignant neoplasm of rectum, rectosigmoid junction, and anus; Z88.2 Allergy status to sulfonamides; Z88.5 Allergy status to narcotic agent; Z88.0 Allergy status to penicillin; Z91.040 Latex allergy status; Z79.899 Other long term (current) drug therapy | CPT/HCPCS: 96523; J1642 ==

== ENCOUNTER 2022-07-05 03:26 | Day surgery (SDC) | payer OTHER | END 2022-07-05 15:35 | disposition home or self-care (01) | LOC: ATC 03:26 | DX: Z45.2 Encounter for adjustment and management of vascular access device (principal); Z85.048 Personal history of other malignant neoplasm of rectum, rectosigmoid junction, and anus | CPT/HCPCS: 96523; J1642 ==

== ENCOUNTER 2022-09-03 02:35 | Day surgery (SDC) | payer OTHER | END 2022-09-03 15:25 | disposition home or self-care (01) | LOC: ATC 02:35 | DX: Z09 Encounter for follow-up examination after completed treatment for conditions other than malignant neoplasm (principal); Z85.048 Personal history of other malignant neoplasm of rectum, rectosigmoid junction, and anus; Z88.5 Allergy status to narcotic agent; Z88.8 Allergy status to other drugs, medicaments and biological substances; Z88.0 Allergy status to penicillin; Z91.040 Latex allergy status; K21.9 Gastro-esophageal reflux disease without esophagitis; Z85.3 Personal history of malignant neoplasm of breast | CPT/HCPCS: 96523; J1642 ==

== ENCOUNTER 2023-02-26 03:53 | Day surgery (SDC) | payer OTHER ==
[2023-02-26 15:11] VITALS: BP 143/70
[2023-02-26] MEDS ORDERED: LISI10 PO (15:18)
[2023-02-26 15:58] LABS: Albumin, Blood 3.5 g/dL (3.4-5.0); Albumin/Globulin Ratio 0.9 (0.8-1.8); Bilirubin, Total 0.3 mg/dL (0.1-1.0); Bun/Creatinine Ratio 21.8 (12.0-20.0); Calcium, Blood 8.6 mg/dL (8.5-10.1); Creatinine, Blood 0.82 mg/dL (0.40-1.00); Globulin, Blood 3.8 g/dL (2.2-4.0); Potassium, Blood 3.8 mmol/L (3.5-5.5); Total Protein, Blood 7.3 g/dL (6.4-8.2)
== END 2023-02-26 15:19 | disposition home or self-care (01) ==
LOC: ATC 03:53
PROVIDERS: Nurse Practitioner Family
DX: Z45.2 Encounter for adjustment and management of vascular access device (principal); Z85.3 Personal history of malignant neoplasm of breast; I10 Essential (primary) hypertension; I48.0 Paroxysmal atrial fibrillation; K21.9 Gastro-esophageal reflux disease without esophagitis; Z88.2 Allergy status to sulfonamides; Z88.5 Allergy status to narcotic agent; Z88.0 Allergy status to penicillin; Z91.040 Latex allergy status; Z79.899 Other long term (current) drug therapy
CPT/HCPCS: 80053; 96523; J1642

== ENCOUNTER 2023-05-05 15:00 | Day surgery (SDC) | payer OTHER ==
[~2023-05-05 15:00] MED LIST changes: +LISI10 PO
[2023-05-05 15:15] VITALS: BP 135/68
[2023-05-05 16:48] LABS: Bun/Creatinine Ratio 21.5 (12.0-20.0); Calcium, Blood 8.6 mg/dL (8.5-10.1); Creatinine, Blood 0.79 mg/dL (0.40-1.00); Potassium, Blood 3.6 mmol/L (3.5-5.5)
--- NOTE | 2023-05-05 17:50 | NUR ---
PT CAME IN FOR LAB DRAW, NO ORDERS IN CHART, CALLED DR AND RECIEVED ORDER
== END 2023-05-05 16:00 | disposition home or self-care (01) ==
LOC: ATC 15:00
PROVIDERS: Nurse Practitioner Family
DX: Z08 Encounter for follow-up examination after completed treatment for malignant neoplasm (principal); I48.0 Paroxysmal atrial fibrillation; I25.2 Old myocardial infarction; K21.9 Gastro-esophageal reflux disease without esophagitis; I10 Essential (primary) hypertension; B35.1 Tinea unguium; M85.80 Other specified disorders of bone density and structure, unspecified site; G47.00 Insomnia, unspecified; Z85.048 Personal history of other malignant neoplasm of rectum, rectosigmoid junction, and anus; Z85.3 Personal history of malignant neoplasm of breast; Z88.6 Allergy status to analgesic agent; Z88.0 Allergy status to penicillin; Z88.5 Allergy status to narcotic agent; Z91.040 Latex allergy status; Z13.31 Encounter for screening for depression
CPT/HCPCS: 36591; 80048; J1642

== ENCOUNTER 2023-07-01 09:17 | Day surgery (SDC) | payer OTHER ==
[~2023-07-01] VITALS: Ht 160 cm; Wt 73.3 kg
--- NOTE | 2023-07-01 09:59 | NUR ---
07/01/23 0959 Lisette Yi TETRACAINE TO RIGHT EYE AT 0950 [place] TO RIGHT [place] 0[address] BY [facility].[place]
[2023-07-01 11:11] VITALS: BP 159/72
== END 2023-07-01 11:44 | disposition home or self-care (01) ==
LOC: ORSCSDS 09:17
PROVIDERS: Student in an Organized Health Care Education/Training Program
PROC: 08RJ3JZ Replacement of Right Lens with Synthetic Substitute, Percutaneous Approach (ICD-10-PCS; principal; 2023-07-01 11:00)
DX: H25.11 Age-related nuclear cataract, right eye (principal); Z96.1 Presence of intraocular lens; I10 Essential (primary) hypertension; I48.91 Unspecified atrial fibrillation; I48.0 Paroxysmal atrial fibrillation; H21.2 Degeneration of iris and ciliary body; K21.9 Gastro-esophageal reflux disease without esophagitis; H40.9 Unspecified glaucoma; Z79.899 Other long term (current) drug therapy
CPT/HCPCS: J1642; J2250; J7040; V2632

== ENCOUNTER 2023-07-10 03:17 | Day surgery (SDC) | payer OTHER ==
[2023-07-10 15:08] VITALS: BP 122/63
== END 2023-07-10 15:21 | disposition home or self-care (01) ==
LOC: ATC 03:17
DX: Z45.2 Encounter for adjustment and management of vascular access device (principal); K21.9 Gastro-esophageal reflux disease without esophagitis; I48.0 Paroxysmal atrial fibrillation; I25.2 Old myocardial infarction; Z92.21 Personal history of antineoplastic chemotherapy; Z85.3 Personal history of malignant neoplasm of breast
CPT/HCPCS: 96523; J1642

== ENCOUNTER 2023-09-05 03:58 | Day surgery (SDC) | payer OTHER ==
[2023-09-05 14:42] VITALS: BP 131/64
== END 2023-09-05 14:46 | disposition home or self-care (01) ==
LOC: ATC 03:58
DX: Z45.2 Encounter for adjustment and management of vascular access device (principal); Z92.21 Personal history of antineoplastic chemotherapy; Z88.0 Allergy status to penicillin; Z88.5 Allergy status to narcotic agent; Z91.040 Latex allergy status; K21.9 Gastro-esophageal reflux disease without esophagitis; I10 Essential (primary) hypertension
CPT/HCPCS: 96523; J1642

== ENCOUNTER 2023-10-24 01:37 | Day surgery (SDC) | payer OTHER ==
[2023-10-24 14:35] VITALS: BP 141/68
[2023-10-24 15:03] LABS: BASOPHILS ABSOLUTE AUTO 0.02 K/mm3 (0.00-0.23); BASOPHILS PERCENT AUTO 0 % (0-2); EOSINOPHILS ABSOLUTE AUTO 0.19 K/mm3 (0.00-0.68); EOSINOPHILS PERCENT AUTO 4 % (0-6); Hematocrit 36.9 % (33.0-51.0); Hemoglobin 11.7 g/dL (11.5-16.0); IMMATURE GRAN ABSOLUTE AUTO 0.01 K/mm3 (0.00-0.10); IMMATURE GRAN PERCENT AUTO 0 % (0-1); LYMPHOCYTES ABSOLUTE AUTO 1.11 K/mm3 (0.84-5.20); LYMPHOCYTES PERCENT AUTO 20 % (21-46); MONOCYTES ABSOLUTE AUTO 0.59 K/mm3 (0.16-1.47); MONOCYTES PERCENT AUTO 11 % (4-13); Mean Corpuscular HGB Conc 31.7 g/dL (31.5-36.5); Mean Corpuscular Volume 92 fL (80-100); Mean Platelet Volume 9.9 fL (9.1-12.4); NEUTROPHILS ABSOLUTE AUTO 3.54 K/mm3 (1.96-9.15); NEUTROPHILS PERCENT AUTO 65 % (41-73); Platelet Count 208 K/mm3 (150-400); RDW Coefficient Variation 13.9 % (11.7-14.2); RDW Standard Deviation 47.3 fL (35.1-46.3); Red Blood Cell Count 4.03 M/mm3 (3.80-5.20); White Blood Cell Count 5.46 K/mm3 (4.00-11.30)
[2023-10-24 15:25] LABS: Alanine Aminotransfer (ALT/SGP 16 U/L (12-78); Albumin, Blood 3.5 g/dL (3.4-5.0); Albumin/Globulin Ratio 0.9 (0.8-1.8); Alk Phos 54 U/L (50-136); Anion Gap 1 mmol/L (6-16); Aspartate Aminotrans (AST/SGOT 16 U/L (12-37); Bilirubin, Total 0.3 mg/dL (0.1-1.0); Blood Urea Nitrogen 19 mg/dL (8-24); Bun/Creatinine Ratio 24.1 (12.0-20.0); CHOL/HDL RATIO 2.7; CO2, Blood 30 mmol/L (21-32); Calcium, Blood 8.8 mg/dL (8.5-10.1); Chloride, Blood 107 mmol/L (98-108); Cholesterol 157 mg/dL (50-200); Creatinine, Blood 0.79 mg/dL (0.40-1.00); Globulin, Blood 3.8 g/dL (2.2-4.0); Glomerular Filtration Rate 75 (60-); Glucose, Blood 86 mg/dL (70-99); HDL Cholesterol 58 mg/dL (>39); LDL/HDL RATIO 1.1; Low Density Lipoprotein Chol 64 mg/dL (0-110); Potassium, Blood 3.6 mmol/L (3.5-5.5); Sodium, Blood 138 mmol/L (136-145); Total Protein, Blood 7.3 g/dL (6.4-8.2); Triglycerides 174 mg/dL (30-160); Very Low Density Lipoprot Chol 34 mg/dL (6-32)
== END 2023-10-24 14:45 | disposition home or self-care (01) ==
LOC: ATC 01:37
PROVIDERS: Nurse Practitioner Family
DX: I10 Essential (primary) hypertension (principal); K21.9 Gastro-esophageal reflux disease without esophagitis; I48.0 Paroxysmal atrial fibrillation; I25.2 Old myocardial infarction; Z85.3 Personal history of malignant neoplasm of breast; Z88.0 Allergy status to penicillin; Z88.5 Allergy status to narcotic agent; Z91.040 Latex allergy status; Z92.21 Personal history of antineoplastic chemotherapy
CPT/HCPCS: 36591; 80053; 80061; 85025; J1642

== ENCOUNTER → 2023-11-12 | Outpatient (CLI) | payer OTHER | END | disposition home or self-care (01) | LOC: LAB SHORT 13:33 → LAB 13:33 | DX: R31.9 Hematuria, unspecified (principal) | CPT/HCPCS: 87086 ==

== ENCOUNTER 2023-12-26 02:42 | Day surgery (SDC) | payer OTHER ==
[2023-12-26 14:38] VITALS: BP 129/68
[2023-12-26] MEDS ORDERED: LOSA25 PO (15:36)
[2023-12-26] MEDS ORDERED: MELATONIN1010 PO (16:03)
== END 2023-12-26 14:39 | disposition home or self-care (01) ==
LOC: ATC 02:42
DX: Z45.2 Encounter for adjustment and management of vascular access device (principal); Z79.899 Other long term (current) drug therapy; I10 Essential (primary) hypertension; K21.9 Gastro-esophageal reflux disease without esophagitis; Z88.8 Allergy status to other drugs, medicaments and biological substances; Z88.5 Allergy status to narcotic agent; Z88.0 Allergy status to penicillin; Z91.040 Latex allergy status
CPT/HCPCS: 96523; J1642

== ENCOUNTER 2024-04-15 03:19 | Day surgery (SDC) | payer OTHER ==
[~2024-04-15 03:19] MED LIST changes: +LOSA25 PO; +MELATONIN1010 PO
[2024-04-15 16:13] VITALS: BP 140/88
== END 2024-04-15 16:22 | disposition home or self-care (01) ==
LOC: ATC 03:19
DX: Z45.2 Encounter for adjustment and management of vascular access device (principal); I10 Essential (primary) hypertension; K21.9 Gastro-esophageal reflux disease without esophagitis; I48.0 Paroxysmal atrial fibrillation; Z88.5 Allergy status to narcotic agent; Z88.0 Allergy status to penicillin; Z88.6 Allergy status to analgesic agent; Z79.899 Other long term (current) drug therapy
CPT/HCPCS: 96523; J1642

== ENCOUNTER 2024-06-29 03:33 | Day surgery (SDC) | payer OTHER ==
[2024-06-29 16:32] VITALS: BP 149/70
[2024-06-29 18:31] LABS: Creatinine, Blood 0.79 mg/dL (0.40-1.00)
== END 2024-06-29 16:41 | disposition home or self-care (01) ==
LOC: ATC 03:33
PROVIDERS: Urology
DX: R33.9 Retention of urine, unspecified (principal); I48.0 Paroxysmal atrial fibrillation; I10 Essential (primary) hypertension; K21.9 Gastro-esophageal reflux disease without esophagitis; K58.9 Irritable bowel syndrome, unspecified; I25.2 Old myocardial infarction; N39.46 Mixed incontinence; M85.80 Other specified disorders of bone density and structure, unspecified site; Z79.899 Other long term (current) drug therapy; Z91.040 Latex allergy status; Z88.0 Allergy status to penicillin; Z88.5 Allergy status to narcotic agent; Z88.6 Allergy status to analgesic agent; Z90.49 Acquired absence of other specified parts of digestive tract
CPT/HCPCS: 36591; 82565; J1642

== ENCOUNTER 2024-08-25 04:06 | Day surgery (SDC) | payer OTHER ==
[~2024-08-25 04:06] MED LIST changes: +ESTRADIOL42.5 GM
[2024-08-25 08:40] VITALS: BP 147/67
[2024-08-25 09:58] LABS: BASOPHILS ABSOLUTE AUTO 0.03 K/mm3 (0.00-0.23); BASOPHILS PERCENT AUTO 1 % (0-2); EOSINOPHILS ABSOLUTE AUTO 0.15 K/mm3 (0.00-0.68); EOSINOPHILS PERCENT AUTO 3 % (0-6); Hematocrit 37.1 % (33.0-51.0); Hemoglobin 12.1 g/dL (11.5-16.0); IMMATURE GRAN ABSOLUTE AUTO 0.04 K/mm3 (0.00-0.10); IMMATURE GRAN PERCENT AUTO 1 % (0-1); LYMPHOCYTES ABSOLUTE AUTO 0.89 K/mm3 (0.84-5.20); LYMPHOCYTES PERCENT AUTO 16 % (21-46); MONOCYTES ABSOLUTE AUTO 0.51 K/mm3 (0.16-1.47); MONOCYTES PERCENT AUTO 9 % (4-13); Mean Corpuscular HGB Conc 32.6 g/dL (31.5-36.5); Mean Corpuscular Volume 92 fL (80-100); Mean Platelet Volume 10.7 fL (9.1-12.4); NEUTROPHILS ABSOLUTE AUTO 3.86 K/mm3 (1.96-9.15); NEUTROPHILS PERCENT AUTO 71 % (41-73); Platelet Count 247 K/mm3 (150-400); RDW Coefficient Variation 13.7 % (11.7-14.2); RDW Standard Deviation 46.6 fL (35.1-46.3); Red Blood Cell Count 4.03 M/mm3 (3.80-5.20); White Blood Cell Count 5.48 K/mm3 (4.00-11.30)
[2024-08-25 10:09] LABS: Alanine Aminotransfer (ALT/SGP 19 U/L (12-78); Albumin, Blood 3.6 g/dL (3.4-5.0); Alk Phos 56 U/L (50-136); Anion Gap 11 mmol/L (3-11); Aspartate Aminotrans (AST/SGOT 22 U/L (12-37); Bilirubin, Total 0.5 mg/dL (0.1-1.0); Blood Urea Nitrogen 17 mg/dL (8-24); CHOL/HDL RATIO 2.2; CO2, Blood 27 mmol/L (21-32); Calcium, Blood 8.8 mg/dL (8.5-10.1); Chloride, Blood 108 mmol/L (98-108); Cholesterol 151 mg/dL (50-200); Creatinine, Blood 0.63 mg/dL (0.40-1.00); Globulin, Blood 3.7 g/dL (2.2-4.0); Glomerular Filtration Rate 88 (60-); Glucose, Blood 87 mg/dL (70-99); HDL Cholesterol 69 mg/dL (>39); LDL/HDL RATIO 0.9; Low Density Lipoprotein Chol 60 mg/dL (0-110); Potassium, Blood 3.9 mmol/L (3.5-5.5); Sodium, Blood 142 mmol/L (136-145); Total Protein, Blood 7.3 g/dL (6.4-8.2); Triglycerides 112 mg/dL (30-160); Very Low Density Lipoprot Chol 22 mg/dL (6-32)
== END 2024-08-25 08:47 | disposition home or self-care (01) ==
LOC: ATC 04:06
PROVIDERS: Registered Nurse
DX: I25.10 Atherosclerotic heart disease of native coronary artery without angina pectoris (principal); I10 Essential (primary) hypertension; K21.9 Gastro-esophageal reflux disease without esophagitis; I48.0 Paroxysmal atrial fibrillation; Z88.0 Allergy status to penicillin; Z88.5 Allergy status to narcotic agent; Z88.6 Allergy status to analgesic agent; Z79.899 Other long term (current) drug therapy
CPT/HCPCS: 36591; 80053; 80061; 85025; J1642

== ENCOUNTER 2024-10-26 01:16 | Day surgery (SDC) | payer OTHER ==
[2024-10-26 14:35] VITALS: BP 129/67
== END 2024-10-26 14:43 | disposition home or self-care (01) ==
LOC: ATC 01:16
DX: Z45.2 Encounter for adjustment and management of vascular access device (principal); M54.16 Radiculopathy, lumbar region; E66.3 Overweight; I10 Essential (primary) hypertension; Z79.899 Other long term (current) drug therapy; Z88.0 Allergy status to penicillin; Z88.5 Allergy status to narcotic agent; Z88.8 Allergy status to other drugs, medicaments and biological substances; Z91.040 Latex allergy status
CPT/HCPCS: 96523; J1642

== ENCOUNTER 2024-12-22 01:36 | Day surgery (SDC) | payer OTHER ==
[2024-12-22 14:10] VITALS: BP 148/72
== END 2024-12-22 14:15 | disposition home or self-care (01) ==
LOC: ATC 01:36
DX: Z45.2 Encounter for adjustment and management of vascular access device (principal); I10 Essential (primary) hypertension; I48.0 Paroxysmal atrial fibrillation; K21.9 Gastro-esophageal reflux disease without esophagitis; M54.16 Radiculopathy, lumbar region; R05.3 Chronic cough; I25.2 Old myocardial infarction; Z88.0 Allergy status to penicillin; Z88.5 Allergy status to narcotic agent; Z88.6 Allergy status to analgesic agent; Z79.899 Other long term (current) drug therapy
CPT/HCPCS: 96523; J1642

== ENCOUNTER 2025-04-13 01:25 | Day surgery (SDC) | payer OTHER | END 2025-04-13 14:37 | disposition home or self-care (01) | LOC: ATC 01:25 | DX: Z45.2 Encounter for adjustment and management of vascular access device (principal); Z79.899 Other long term (current) drug therapy; I10 Essential (primary) hypertension; K21.9 Gastro-esophageal reflux disease without esophagitis; Z88.8 Allergy status to other drugs, medicaments and biological substances; Z88.5 Allergy status to narcotic agent; Z91.040 Latex allergy status | CPT/HCPCS: 96523; J1642 ==

== ENCOUNTER 2025-08-05 02:33 | Day surgery (SDC) | payer OTHER ==
[2025-08-05 16:44] VITALS: BP 129/70
== END 2025-08-05 16:39 | disposition home or self-care (01) ==
LOC: ATC 02:33
DX: Z45.2 Encounter for adjustment and management of vascular access device (principal); I10 Essential (primary) hypertension; I48.0 Paroxysmal atrial fibrillation; K21.9 Gastro-esophageal reflux disease without esophagitis; R05.3 Chronic cough; M54.16 Radiculopathy, lumbar region; E66.3 Overweight; Z68.26 Body mass index [BMI] 26.0-26.9, adult; Z79.899 Other long term (current) drug therapy; Z88.0 Allergy status to penicillin; Z88.5 Allergy status to narcotic agent; Z88.6 Allergy status to analgesic agent; Z91.040 Latex allergy status; Z90.49 Acquired absence of other specified parts of digestive tract
CPT/HCPCS: 96523; J1642